=== PATIENT | female | born 1990 | race Caucasian/White ===

== ENCOUNTER 2019-12-24 01:38 | Emergency (ER) | payer SELFPAY ==
[2019-12-24 01:46] VITALS: PULSE 101; RESP 18; TEMP 36.8; O2SAT 96; BMI 21.9
--- NOTE | 2019-12-24 02:18 | ED_ITS ---
HPI - Female Genitourinary General: Chief complaint: Urogenital-Female Stated complaint: unable to urinate Time Seen by Provider: 12/24/19 02:04 Source: patient Mode of arrival: ambulatory Limitations: no limitations History of Present Illness: HPI Narrative: 29-year-old female comes in today with concerns of labial swelling. Patient states that she just had intercourse of her significant other and went to the bathroom and she noticed that she had increased swelling of the labial tissue. Patient denies use of condoms or lubricant gels. Patient did report that she had used some lotion after a shower that would note that was new. But did not use it to her vaginal area. Patient did have oysters for the first time today. Patient appears well. Patient denies any difficulty breathing. Patient denies any fever. Review of Systems General: Reports: 10 or more systems reviewed and unremarkable except in HPI and below : Reports: other (Labial swelling) Physical Exam Const: COMMON NORMALS: no acute distress and patient oriented x3 GENERAL APPEARANCE: cooperative HENMT: COMMON NORMALS: normocephalic and Normal external nose present HEAD & SCALP: normal to inspection and normocephalic NOSE: Normal external nose present MOUTH: Normal oral and palatal mucosa present THROAT: posterior oropharynx normal Eye: GENERAL EYE: appearance normal, both eyes and all related structures Neck/C-Spine: COMMON NORMALS: full ROM Chest: COMMONS NORMALS: normal inspection of the chest Resp: COMMON NORMALS: normal respiratory effort EFFORT & INSPECTION: Yes able to speak in complete sentences Cardio: COMMON NORMALS: regular rate and regular rhythm RATE: regular rate RHYTHM: regular rhythm GI: COMMON NORMALS: non-tender : EXTERNAL FEMALE EXAM: Yes external swelling (Labial swelling.) Back/Pelvis: COMMON NORMALS: thoracic and lumbar spine normal to inspection Extremity: COMMON NORMALS: normal to inspection Neuro: COMMON NORMALS: patient oriented x3 and moves all extremities Psych: COMMON NORMALS: mental status grossly normal and cooperative Skin: COMMON NORMALS: no rashes or lesions noted GENERAL SKIN EXAM: no rashes or lesions noted Course Vital Signs: Vital signs: Vital Signs Temperature 98.2 F 12/24/19 01:46 Pulse Rate 77 12/24/19 03:02 Respiratory Rate 22 H 12/24/19 03:02 Blood Pressure 99/54 07/18/20 03:02 Pulse Oximetry 98 12/24/19 03:02 MDM - Female MDM Narrative: Medical decision making narrative: Patient comes in today for concerns of labial swelling after intercourse. Patient denies any use of gels or condoms during intercourse. Exam notes labial swelling without any significant urethral swelling or vaginal irritation. Differential diagnosis includes allergic reaction, contact dermatitis, vaginitis. Patient was medicated with Solu-Medrol, Benadryl, and epinephrine 0.3 mg. Patient had some resolution in symptoms. Patient was medicated with hydrocodone for discomfort. We will continue patient on steroids for the swelling and discomfort. Recommended avoidance of sexual intercourse, and cosmetic products until return to normal. Patient reports understanding of care plan and need for follow-up. Lab Data: Labs: Lab Results 12/24/19 Range/Units 02:35 Urine Color Yellow (Yellow) Urine Appearance Hazy A (CLEAR) Urine pH 5 (5-7) Ur Specific Gravit y 1.025 (1.005-1.030) Urine Protein Neg (Negative) Urine Glucose (UA) Norm (Normal) Urine Ketones Negative (Negative) Urine Blood 2+ H (Negative) Urine Nitrate Negative (Negative) Urine Bilirubin Neg (NEGATIVE) Urine Urobilinogen Norm (Negative) mg/dL Ur Leukocyte Nevaeh ase Negative (Negative) Amorphous Sediment Not Reportable Discharge Plan Discharge Patient Disposition: Home, Self-Care Clinical Impression: Contact dermatitis Qualifiers: Contact dermatitis type: allergic Contact dermatitis trigger: unspecified trigger Qualified Code(s): L23.9 - Allergic contact dermatitis, unspecified cause Condition: Stable Prescriptions: New Medrol (Tobin) 4 mg tablets,dose pack See Rx Instructions .ROUTE .COMPLEX Qty: 21 RF: 0 hydrocodone-acetaminophen 5-325 mg tablet 1 tab PO Q8H PRN (Reason: pain) Qty: 5 RF: 0 Discharge Orders: Discharge Order (Routine); Ordered 12/24/19 Ordered By: Alberto Quintana Activity Restrictions/Additional Instructions: Drink plenty of water. Take medications as directed. Take the Benadryl 25 mg 1 every 6 hours for the next 3 days. Avoid sexual intercourse the use of soaps, cosmetic products and other irritants until you return to normal. Use only water-based lubricants for sexual intercourse. Follow-up with primary care in 3 days for recheck. Return to the ER for worsening symptoms or high fever greater than 100.4. Coding Level of Care Code ED Malted Milk Mixer for Chg 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
[2019-12-24 03:02] VITALS: BP 99/54; PULSE 77; RESP 22; O2SAT 98
[2019-12-24] MEDS: sodium chloride 0.9% 500 ML 999 ML IV (03:03)
[2019-12-24] MEDS: EPINEPHrine 1 mg/mL INJ 0.3 MG IM (03:04)
[2019-12-24] MEDS: diphenhydrAMINE 50 mg/mL SDV 1mL 25 MG IVP (03:04)
[2019-12-24 03:56] LABS: Add Urine Microscopic? YES; Bilirubin Urine Neg (NEGATIVE); Blood Urine 2+ (Negative); Glucose Urine UA Norm (Normal); Ketones Urine Negative (Negative); Leukocyte Esterase Urine Negative (Negative); Nitrate Urine Negative (Negative); Protein Urine Neg (Negative); Specific Gravity, Urine 1.025 (1.005-1.030); Urine Appearance Hazy (CLEAR); Urine Color Yellow (Yellow); Urobilinogen Urine Norm (Negative); pH Urine 5 (5-7)
[2019-12-24 04:00] VITALS: BP 97/55; PULSE 90; RESP 16; O2SAT 99
[2019-12-24 04:05] LABS: Add Urine Culture? No; Bacteria Urine 1+; Mucus Urine 3+
[2019-12-24] MEDS: HYDROcodone-acetaminophen 7.5-325 mg Tablet 1 TAB PO (04:06)
== END 2019-12-24 04:14 | disposition home or self-care (01) ==
PROVIDERS: Emergency Provider Nurse Practitioner Family
DX: L23.9 Allergic contact dermatitis, unspecified cause (principal)
CPT/HCPCS: 12345; 81001; 87210; 87491; 87591; 87661; 96372; 96374; 96375; 99283; J0171; J1200; J2930; J7040

== ENCOUNTER 2020-05-02 15:23 | Inpatient (IN) | payer SELFPAY ==
[2020-05-02 15:32] VITALS: BP 106/70; PULSE 84; RESP 20; TEMP 36.7; O2SAT 98; BMI 22.6
[2020-05-02 16:15] LABS: Basophils % 0.7 %; Eosinophils # 0.2 10^3/uL (0.0-0.8); Eosinophils % 4.1 %; Hematocrit 40.6 % (37.0-47.0); Hemoglobin 13.2 g/dL (11.5-15.3); Lymphocytes # 2.7 10^3/uL (0.8-4.8); Lymphocytes % 45.8 %; Mean Corpuscular HGB Conc 32.5 g/dL (30.0-36.0); Mean Corpuscular Hemoglobin 31.1 pg (28.0-34.0); Mean Corpuscular Volume 95.8 fL (81-99); Mean Platelet Volume 10.4 fL (7.4-10.4); Monocytes # 0.4 10^3/uL (0.2-0.9); Monocytes % 7.1 %; Neutrophils # 2.45 10^3/uL (1.8-7.7); Neutrophils % 42.3 %; Nucleated Red Blood Cells % 0 %; Platelet Count 179 10^3/cmm (130-400); Red Blood Count 4.24 10^6/uL (4.1-5.3); Red Cell Distribution Width 11.9 % (12.1-15.1); White Blood Count 5.8 10^3/uL (4.0-10.0)
[2020-05-02 16:24] LABS: Amphetamines Screen Urine Negative (Negative); Barbiturates Screen Urine Negative (Negative); Benzodiazepines Screen Urine Positive (Negative); Cocaine Screen Urine Negative (Negative); Opiate Screen Urine Negative (Negative); PCP Screen Urine Negative (Negative); THC Screen Urine Positive (Negative)
[2020-05-02 16:27] LABS: Add Urine Microscopic? YES; Bilirubin Urine Neg (Negative); Blood Urine Neg (Negative); Glucose Urine UA Norm (Normal); Ketones Urine Negative (Negative); Leukocyte Esterase Urine Negative (Negative); Nitrate Urine Negative (Negative); Protein Urine Neg (Negative); Urine Appearance SL Hazy (CLEAR); Urine Color Yellow (Yellow); Urobilinogen Urine Norm (Negative); WBC Urine RARE /hpf (0-5); pH Urine 5 (5-7)
[2020-05-02 16:28] LABS: Add Urine Culture? No; Bacteria Urine 1+ /hpf; Mucus Urine 1+ /hpf; Squamous Epithelial Cell Urine 15-25 /hpf (0-5)
[2020-05-02 16:35] LABS: Alanine Aminotransferase 31 U/L (0-33); Albumin Level 4.2 g/dL (3.5-5.2); Alkaline Phosphatase 103 IU/L (35-105); Anion Gap 11.4 (5-19); Aspartate Amino Transferase 19 U/L (0-32); Blood Urea Nitrogen 11 mg/dL (6-20); Calcium 9.4 mg/dL (8.5-10.5); Carbon Dioxide 28 mmol/L (22-29); Chloride 101 mmol/L (98-107); Globulin 2.5 g/dL (1.3-4.6); Glomerular Filtration Rate 118.2 mL/min (90-130); Glucose 99 mg/dL (65-115); Osmolality Calculated 281 mOsm/kg (285-295); Potassium 4.4 mmol/L (3.5-5.1); Sodium 136 mmol/L (136-145); Total Bilirubin 0.2 mg/dL (0.15-1.2); Total Protein 6.7 g/dL (6.6-8.7)
[2020-05-02 16:36] LABS: Acetaminophen < 5.0 ug/mL (10-30); Alcohol Level < 10 mg/dL (0-10); Salicylate < 0.3 mg/dL (3-10)
--- NOTE | 2020-05-02 16:44 | ED_ITS ---
HPI - Psych General: Chief Complaint: Psychiatric Symptoms Stated Complaint: SI Time Seen by Provider: 05/02/20 15:56 History of Present Illness: HPI Narrative: 30-year-old female comes in complaining of being anxious and depressed. She just lost her job she has been struggling with depression anxiety and issues of anger. She has a son is autistic and is struggling with managing this. States not been eating or drinking she has had suicidal thoughts and even times had some homicidal thoughts thoughts of smothering her boyfriend with a pillow in his sleep. She has had thoughts of harming herself either shooting herself or overdosing on pills she does have access to a firearm she tells me. MD complaint: suicidal ideation and feels depressed Onset (ago): week(s) Duration: intermittent and getting worse Relieving factors: medication (Took a friend's Klonopin stated that helped) Exacerbating factors: other (Social stressors) Context: significant life stressor (Recently lost job, son is autistic) Associated psychiatric symptoms: suicidal ideation and homicidal ideation Associated symptoms: Deny auditory hallucinations, visual hallucinations, delusions, depression, homicidal ideation, suicidal ideation or racing thoughts Treatments prior to arrival: none If self harm: admits thoughts of self harm and has plan Review of Systems Const: Denies: fever(s), chills, body aches, change in appetite, fatigue or malaise ENMT: Denies: throat pain, ear or mastoid pain, nasal discharge or nasal congestion Card: Denies: chest pain, edema, dyspnea on exertion or orthopnea Resp: Denies: dyspnea, productive cough or non-productive cough GI: Denies: abdominal pain, nausea, vomiting, hematemesis, coffee ground emesis, diarrhea, constipation, bloating, hematochezia or melena : Denies: flank pain, difficulty voiding, dysuria, urinary frequency or urinary urgency Skin/Breast: Denies: rash or pruritus Psych: Denies: depression, visual hallucinations, auditory hallucinations, suicidal ideation or homicidal ideation [facility] PFSH: Medical History (Updated 05/02/20 @ 18:01 by Hernan Montalvo DO) Endometriosis Surgical History (Updated 05/02/20 @ 16:47 by Hernan Montalvo DO) History of cholecystectomy History of hysterectomy History of tonsillectomy and adenoidectomy Physical Exam Const: COMMON NORMALS: no acute distress GENERAL APPEARANCE: cooperative and comfortable ORIENTATION/CONSCIOUSNESS: Yes awake, Yes oriented to person, Yes oriented to place and Yes oriented to time HENMT: COMMON NORMALS: normocephalic, atraumatic and hearing grossly normal bilaterally HEAD & SCALP: normocephalic and atraumatic Neck/C-Spine: COMMON NORMALS: no JVD Resp: COMMON NORMALS: normal respiratory effort, No retractions, No use of accessory muscles and clear to auscultation bilaterally AUSCULTATION: clear to auscultation bilaterally Cardio: COMMON NORMALS: no JVD, regular rate, regular rhythm and No murmurs present (Cardio) RATE: regular rate RHYTHM: regular rhythm GI: COMMON NORMALS: Soft to palpation and No hepatosplenomegaly present AUSCULTATION: Yes normoactive bowel sounds PALPATION: Yes Soft to palpation, No Tenderness to palpation present (GI), No Guarding due to palpation present (GI) and Yes No hepatosplenomegaly present Neuro: SENSORIUM/ORIENTATION: Yes oriented to person, Yes oriented to place and Yes oriented to time Psych: THOUGHT CONTENT: No delusions MDM - Psych MDM Narrative: Medical decision making narrative: Discussed Dr. Espinal patient is suicidal and homicidal has plans for both we will go and admit her to the Neuropsych Unit orders written Lab Data: Labs: Lab Results 05/02/20 05/02/20 05/02/20 Range/Units 16:02 16:02 16:02 WBC 5.8 (4.0-10.0) 10^3/ uL RBC 4.24 (4.1-5.3) 10^6/u L Hgb 13.2 (11.5-15.3) g/dL Hct 40.6 (37.0-47.0) % MCV 95.8 (81-99) fL MCH 31.1 (28.0-34.0) pg MCHC 32.5 (30.0-36.0) g/dL RDW 11.9 L (12.1-15.1) % Plt Count 179 (130-400) 10^3/c mm MPV 10.4 (7.4-10.4) fL Neut % (Auto) 42.3 % Lymph % (Auto) 45.8 % Williams % (Auto) 7.1 % Eos % (Auto) 4.1 % Baso % (Auto) 0.7 % Neut # (Auto) 2.45 (1.8-7.7) 10^3/u L Lymph # (Auto) 2.7 (0.8-4.8) 10^3/u L Williams # (Auto) 0.4 (0.2-0.9) 10^3/u L Eos # (Auto) 0.2 (0.0-0.8) 10^3/u L Baso # (Auto) 0.0 (0.0-0.1) 10^3/u L Nucleated RBC % (a uto) 0 % Nucleated RBCs # 0.0 /100WBC Sodium 136 (136-145) mmol/L Potassium 4.4 (3.5-5.1) mmol/L Chloride 101 (98-107) mmol/L Carbon Dioxide 28 (22-29) mmol/L Anion Gap 11.4 (5-19) BUN 11 (6-20) mg/dL Creatinine 0.6 (0.5-0.9) mg/dL GFR Calculation 118.2 (90-130) mL/min Glucose 99 (65-115) mg/dL Calculated Osmolal ity 281 L (285-295) mOsm/k g Calcium 9.4 (8.5-10.5) mg/dL Total Bilirubin 0.2 (0.15-1.2) mg/dL AST 19 (0-32) U/L ALT 31 (0-33) U/L Alkaline Phosphata se 103 (35-105) IU/L Total Protein 6.7 (6.6-8.7) g/dL Albumin 4.2 (3.5-5.2) g/dL Globulin 2.5 (1.3-4.6) g/dL Urine Color Yellow (Yellow) Urine Appearance Sl hazy (CLEAR) Urine pH 5 (5-7) Ur Specific Gravit y 1.020 (1.005-1.030) Urine Protein Neg (Negative) Urine Glucose (UA) Norm (Normal) Urine Ketones Negative (Negative) Urine Blood Neg (Negative) Urine Nitrate Negative (Negative) Urine Bilirubin Neg (Negative) Urine Urobilinogen Norm (Negative) mg/dL Ur Leukocyte Nevaeh ase Negative (Negative) Urine RBC None (0-2) /hpf Urine WBC Rare (0-5) /hpf Ur Squamous Epith Cells 15-25 H (0-5) /hpf Amorphous Sediment Not Reportable Urine Bacteria 1+ H (NONE) /hpf Urine Mucus 1+ /hpf Salicylates < 0.3 L (3-10) mg/dL Urine Opiates Scre en (Negative) ng/mL Acetaminophen < 5.0 L (10-30) ug/mL Ur Barbiturates Sc reen (Negative) ng/mL Ur Phencyclidine S crn (Negative) ng/mL Ur Amphetamines Sc reen (Negative) ng/mL U Benzodiazepines Scrn (Negative) ng/mL Urine Cocaine Scre en (Negative) ng/mL U Marijuana (THC) Screen (Negative) ng/mL Ethyl Alcohol < 10 (0-10) mg/dL 11/25/20 Range/Units 16:02 WBC (4.0-10.0) 10^3/ uL RBC (4.1-5.3) 10^6/u L Hgb (11.5-15.3) g/dL Hct (37.0-47.0) % MCV (81-99) fL MCH (28.0-34.0) pg MCHC (30.0-36.0) g/dL RDW (12.1-15.1) % Plt Count (130-400) 10^3/c mm MPV (7.4-10.4) fL Neut % (Auto) % Lymph % (Auto) % Williams % (Auto) % Eos % (Auto) % Baso % (Auto) % Neut # (Auto) (1.8-7.7) 10^3/u L Lymph # (Auto) (0.8-4.8) 10^3/u L Williams # (Auto) (0.2-0.9) 10^3/u L Eos # (Auto) (0.0-0.8) 10^3/u L Baso # (Auto) (0.0-0.1) 10^3/u L Nucleated RBC % (a uto) % Nucleated RBCs # /100WBC Sodium (136-145) mmol/L Potassium (3.5-5.1) mmol/L Chloride (98-107) mmol/L Carbon Dioxide (22-29) mmol/L Anion Gap (5-19) BUN (6-20) mg/dL Creatinine (0.5-0.9) mg/dL GFR Calculation (90-130) mL/min Glucose (65-115) mg/dL Calculated Osmolal ity (285-295) mOsm/k g Calcium (8.5-10.5) mg/dL Total Bilirubin (0.15-1.2) mg/dL AST (0-32) U/L ALT (0-33) U/L Alkaline Phosphata se (35-105) IU/L Total Protein (6.6-8.7) g/dL Albumin (3.5-5.2) g/dL Globulin (1.3-4.6) g/dL Urine Color (Yellow) Urine Appearance (CLEAR) Urine pH (5-7) Ur Specific Gravit y (1.005-1.030) Urine Protein (Negative) Urine Glucose (UA) (Normal) Urine Ketones (Negative) Urine Blood (Negative) Urine Nitrate (Negative) Urine Bilirubin (Negative) Urine Urobilinogen (Negative) mg/dL Ur Leukocyte Nevaeh ase (Negative) Urine RBC (0-2) /hpf Urine WBC (0-5) /hpf Ur Squamous Epith Cells (0-5) /hpf Amorphous Sediment Urine Bacteria (NONE) /hpf Urine Mucus /hpf Salicylates (3-10) mg/dL Urine Opiates Scre en Negative (Negative) ng/mL Acetaminophen (10-30) ug/mL Ur Barbiturates Sc reen Negative (Negative) ng/mL Ur Phencyclidine S crn Negative (Negative) ng/mL Ur Amphetamines Sc reen Negative (Negative) ng/mL U Benzodiazepines Scrn Positive H (Negative) ng/mL Urine Cocaine Scre en Negative (Negative) ng/mL U Marijuana (THC) Screen Positive H (Negative) ng/mL Ethyl Alcohol (0-10) mg/dL Discharge Plan Discharge Patient Disposition: Admitted As Inpatient Clinical Impression: Suicidal ideation Condition: Stable Coding Level of Care Code ED Defense Attorney for Robert Fwd Exam Detailed
[2020-05-02] MEDS: LORazepam 2 mg Tablet PO (17:23)
--- NOTE | 2020-05-02 18:47 | PC.NURSE ---
report given to saskia farncisco
[2020-05-02 18:57] VITALS: BP 96/58; PULSE 82; RESP 19; TEMP 36.4; O2SAT 100
[2020-05-02 19:00] VITALS: BP 96/58; PULSE 82; RESP 19; TEMP 36.4; O2SAT 100
[2020-05-02 20:23] VITALS: BP 96/58; PULSE 82; RESP 19; TEMP 36.4
[2020-05-02 20:34] VITALS: BP 96/58; PULSE 82; RESP 19; TEMP 36.4
--- NOTE | 2020-05-02 21:18 | PC.NURSE ---
past medication Pt stated that she took Valium and Prozac in the past. She stated that this is the only medications that have helped her anxiety level.
--- NOTE | 2020-05-02 21:20 | PC.NURSE ---
30-year-old female comes in complaining of being anxious and depressed. She just lost her job she has been struggling with depression anxiety and issues of anger. She has a son is autistic and is struggling with managing this. States not been eating or drinking she has had suicidal thoughts and even times had some homicidal thoughts thoughts of smothering her boyfriend with a pillow in his sleep. She has had thoughts of harming herself either shooting herself or overdosing on pills she does have access to a firearm she tells me.
[2020-05-02] MEDS: hyDROXYzine 25 mg Capsule 50 MG PO (21:23)
--- NOTE | 2020-05-02 21:24 | PC.NURSE ---
Addendum entered by Keira Bennett RN 05/02/20 22:01: Pt reports increased anxiety upon waking. She says she is panicking. She then returned to bed. Original Note: Visteril 50mg PO given for anxiety rated 8 on a scale of 1-10 Will continue to monitor pt.
[2020-05-02] MEDS: trazodone 50 mg Tablet PO (22:33)
--- NOTE | 2020-05-02 22:33 | PC.NURSE ---
PRN TRAZODOEN ADMINISTERED TRAZODONE 50MG PO PER PT REQUEST FOR SLEEP AID.
[2020-05-03 06:00] VITALS: BP 96/59; PULSE 59; RESP 16; TEMP 36.8; O2SAT 98
--- NOTE | 2020-05-03 08:56 | P.HP_ITS ---
Providers/Chief Complaint Admitting Physician: Sebastien Desai MD Chief Complaint: SI HPI NPU History of Present Illness Leah Chua is a 30-year-old woman who has self admitted herself to the psychiatric unit to prevent impulsive self-injurious behavior. She has been laboring under considerable psychoemotional stress and has been having suicidal thoughts but without intent or plan. Her performance at work has declined to such a degree that she may lose her employment. She describes herself as having anxiety all the time. However what she describes is someone with severe clinical depression. She has anhedonia, feelings of hopelessness and worthlessness, irritability, severe insomnia, poor concentration, and suicidal ideation. She has never had an intent or plan. She denies the presence of auditory or visual hallucinations. Her urine drug screen is positive for marijuana and benzodiazepines. However she is free of alcohol and other illegal substances. She desires help with her symptoms so that she can return to her employment and taking care of her 8-year-old son. Past psychiatric history: The patient describes herself as having multiple medication trials since for starting a Vistaril at age 17. She says the Vistaril has persistently given her for anxiety but it does not help very much. She has been helped the most by combination of Prozac and Valium. She stopped taking it 4 years ago because she wanted to try and maintain her life without medications. She is also taking trazodone and Abilify and multiple depression pills. Abilify was not tolerated. She says that gabapentin caused seizures but that was while she was in rehab for methamphetamine. She has been in rehab 1 time 5 years ago to resolve a problem with methamphetamine dependence. 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 She was not confronted about her marijuana use. Family psychiatric history is positive for multiple diagnoses in a variety of numbers. She has a uncle and several cousins diagnosed with schizophrenia. Many of her family have been diagnosed either with anxiety or bipolar disorder. It is also apparent that substance use is a general problem in the family. Social history: The patient grew up in [place] and is a high school graduate. She currently works for 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 She works 14 hours/day. She has an 18-year-old son and is diagnosed with autism who is cared for by her boyfriend's mother. Her performance at work has declined to such a degree that she may lose her employment. Review of Systems Narrative: Review of Systems Constitutional: Complains of: Fatigue Eyes: Complains of: No eye symptoms ENT/Mouth: Complains of: No ENTM symptoms Cardiovascular: Complains of: No cardiac symptoms Respiratory: Complains of: No respiratory symptoms GI: Complains of: No GI symptoms Neuro: Complains of: No neuro symptoms Musculoskeletal: Complains of: No musculoskeletal symptoms Skin: Complains of: No skin symptoms Hematologic/Lymphatic: Complains of: No hematologic/lymphatic symptoms Endocrine: Complains of: No endocrine symptoms : Complains of: No symptoms Psych: Complains of: Depression, but denies suicide ideation Meds NPU Home Medications Medication Instructions Recorded Confirmed Last Taken Type No Known Home Medications 05/02/20 05/02/20 Unknown History Allergies Allergy/AdvReac Type Severity Reaction Status Date / Time buspirone [From BuSpar] Allergy ADR-Cramping Verified 05/02/20 21:08 of the Muscles gabapentin [From Neurontin] Allergy ADR-Seizure Verified 05/02/20 21:08 metoclopramide [From Reglan] AdvReac ADR-Irritab Verified 12/24/19 04:06 le prochlorperazine AdvReac ADR-Irritab Verified 12/24/19 04:06 [From Compazine] le [facility] NPU PFSH: Medical History (Updated 05/03/20 @ 09:15 by Sebastien Desai MD) Endometriosis Surgical History (Updated 05/02/20 @ 16:47 by Hernan Montalvo DO) History of cholecystectomy History of hysterectomy History of tonsillectomy and adenoidectomy Mental Status Exam MSE Comments: Mental Status Exam: Patient is alert interpersonally engaged female appearing approximately her stated age. Eye contact initially is good but as she becomes more despondent and distressed about discussing her situation she assumes a more closed and submissive posture. She is believed to be a reliable informant and information provided is internally consistent and consistent with that in the chart. Appearance: hygiene is fair; no gross neurological deficits., gait is unremarkable; AIMS=0 Speech: Speech is of normal rate and rhythm and easily understood. She speaks in full sentences and has good command of vocabulary Thought processes: Thought processes are abstract. Judgment is adequate for safety. Associations: intact Psychotic processes: There is no indication of guarding or paranoia. There is no attention to the internal stimuli. Auditory and visual hallucinations are denied. Judgment: Insight is fair. Problem solving skills are adequate for safety. Orientation: The patient is oriented to person, place time and situation. Memory: no deficits noted in immediate, intermediate, or remote spheres. Attention: The patient is alert and interpersonally engaged. Language: Verbalizations are coherent. Fund of knowledge: Fund of knowledge is adequate. Affect/Mood: Affect is tearful and consistent with a depressed mood. pt denies suicidal ideation Affective range is constricted Psychosis: perception unimpaired except through cognitive distortion; reality testing intact. Vitals/I&O/Wt Last Vital Signs Temp 98.2 F 05/03/20 06:00 Pulse 59 L 05/03/20 06:00 Resp 16 05/03/20 06:00 BP 96/59 05/03/20 06:00 Pulse Ox 98 05/03/20 06:00 Weight last 48 hrs Weight 54.431 kg Data NPU : 05/02/20 16:02 05/02/20 16:02 A&P Assessment and plan (1) Major depression, single episode: Status: Acute Qualifiers: Active/Remission status: currently active Major depression episode severity: severe Psychotic features: without psychotic features Qualified Code(s): F32.2 - Major depressive disorder, single episode, severe without psychotic features Additional A&P Information Leah Chua is a 30-year-old woman who is laboring under an immense psychosocial pressure. She is suffering from clinical depression. She has resp onded well in the past with Prozac and Valium. We have decided to return to that when in combination. She was thoroughly educated in regard to the time course of response to medication treatment for depression and the potential for abuse of Valium. Are also going to initiate prazosin 1 mg at bedtime. Potential benefits and side effects were discussed. However we also discussed the possibility that she is simply overwhelmed by self-imposed demands. It is unclear whether she can continue this schedule even with effective treatment. Due to the psychiatric conditions and treatment listed in the Assessment and Plan - the patient requires continued hospitalization. Will provide a safe and therapeutic environment for patient.. Will continue inpatient treatment to allow for medication adjustment and monitoring. Will continue q15 min safety checks. Will continue current medications and monitor for medication side effects. Monitor patient's mood, sleep, appetite, and behavior closely. Encourage patient to participate in individual and group therapeutic sessions on the haskins. Estimated length of stay 3 days The expected benefits and potential side effects of patient's psychiatric medications were discussed with the patient. The patient understands and consents to treatment. CRITERIA FOR DISCHARGE: stable on medications and no longer an imminent threat to self or others Involuntary Hold Information 96 Hour Hold: 96 Hour Involuntary Admission: No Attestations NPU Medical Necessity Statement*: Patient will remain in the hospital another 2-4 nights for assessment of medication efficacy and tolerability. Coding Level of Care Code Acute Burner Operator for Robert Valerio Diagnoses Major depression, single episode F32.2 Active/Remission status: currently active Major depression episode severity: severe Psychotic features: without psychotic features
[2020-05-03] MEDS: fluoxetine 20 mg Capsule PO (09:12)
[2020-05-03] MEDS: diazePAM 5 mg Tablet PO ×2 (09:12→20:25)
[2020-05-03] MEDS: hyDROXYzine 25 mg Capsule 50 MG PO (12:35)
--- NOTE | 2020-05-03 12:35 | PC.NURSE ---
PRN VISTARIL 50 MG GIVEN PO PER PT C/O ANXIETY. WILL CONT TO MONITOR
[2020-05-03 14:00] VITALS: BP 92/53; PULSE 60; RESP 16; TEMP 36.9; O2SAT 96
[2020-05-03] MEDS: trazodone 50 mg Tablet PO (20:24)
[2020-05-03] MEDS: prazosin 1 mg Capsule PO (20:24)
[2020-05-03 22:00] VITALS: BP 93/63; PULSE 53; RESP 17; TEMP 36.4; O2SAT 99
[2020-05-04 06:00] VITALS: BP 90/53; PULSE 67; RESP 15; TEMP 36.6; O2SAT 97
[2020-05-04] MEDS: fluoxetine 20 mg Capsule PO (08:47)
--- NOTE | 2020-05-04 08:51 | P.PN_ITS ---
Subjective NPU Subjective: Interval history: Patient states that she slept much better last night and her level of anxiety is much reduced. She talks about intrusive ego-dystonic thoughts regarding things that her mother has said in the past and that are demeaning to her. She cannot stop thinking about them. She does not describe them as auditory hallucinations. She is tolerating current medications well. Mental Status Exam MSE Comments: Mental Status Exam: Patient is alert interpersonally engaged female appearing approximately her stated age. Eye contact is good . She is believed to be a reliable informant and information provided is internally consistent and consistent with that in the chart. Appearance: hygiene is fair; no gross neurological deficits., gait is unremarkable; AIMS=0 Speech: Speech is of normal rate and rhythm and easily understood. She speaks in full sentences and has good command of vocabulary Thought processes: Thought processes are abstract. Judgment is adequate for safety. Associations: intact Psychotic processes: There is no indication of guarding or paranoia. There is no attention to the internal stimuli. Auditory and visual hallucinations are denied. Judgment: Insight is fair. Problem solving skills are adequate for safety. Orientation: The patient is oriented to person, place time and situation. Memory: no deficits noted in immediate, intermediate, or remote spheres. Attention: The patient is alert and interpersonally engaged. Language: Verbalizations are coherent. Fund of knowledge: Fund of knowledge is adequate. Affect/Mood: Affect is tearful and consistent with a depressed mood. pt denies suicidal ideation Affective range is constricted Psychosis: perception unimpaired except through cognitive distortion; reality testing intact. Cognition: Patient Appearance: Appropriate Level of Consciousness: Awake, Alert and Appropriate Patient Cognition Impaired: Yes Ability to Follow Directions: Excellent Patient Orientation (long list): Person, Place and Time Comprehension Ability: No Impairment Hallucination Type: Auditory Delusion Description: Not Present Thought Process: Appropriate Affect: Affect Description: Appropriate and Calm Behavior: Patient Behavior: Appropriate and Cooperative Speech Pattern: Clear Vitals/I&O/Wt Last Vital Signs Temp 97.8 F 05/04/20 06:00 Pulse 67 05/04/20 06:00 Resp 15 05/04/20 06:00 BP 90/53 05/04/20 06:00 Pulse Ox 97 05/04/20 06:00 Weight last 48 hrs Weight 54.431 kg Data NPU : 05/02/20 16:02 05/02/20 16:02 A&P Assessment and plan (1) Major depression, single episode: Status: Acute Qualifiers: Active/Remission status: currently active Major depression episode severity: severe Psychotic features: without psychotic features Qualified Code(s): F32.2 - Major depressive disorder, single episode, severe without psychotic features Additional A&P Information Leah Chua is a 30-year-old woman who is laboring under an immense psychosocial pressure. She is suffering from clinical depression. She has responded well in the past with Prozac and Valium. We have decided to return to that when in combination. She was thoroughly educated in regard to the time course of response to medication treatment for depression and the potential for abuse of Valium. Are also going to initiate prazosin 1 mg at bedtime. Potential benefits and side effects were discussed. However we also discussed the possibility that she is simply overwhelmed by self-imposed demands. It is unclear whether she can continue this schedule even with effective treatment. Due to the psychiatric conditions and treatment listed in the Assessment and Plan - the patient requires continued hospitalization. Will provide a safe and therapeutic environment for patient.. Will continue inpatient treatment to allow for medication adjustment and monitoring. Will continue q15 min safety checks. Hospital day #2:Patient states that she slept much better last night and her level of anxiety is much reduced. She talks about intrusive ego-dystonic thoughts regarding things that her mother has said in the past and that are d emeaning to her. She cannot stop thinking about them. She does not describe them as auditory hallucinations. She is tolerating current medications well. Plan: Trial of Abilify 2 mg daily. Monitor patient's mood, sleep, appetite, and behavior closely. Encourage patient to participate in individual and group therapeutic sessions on the [facility]. Estimated length of stay 3 days The expected benefits and potential side effects of patient's psychiatric medications were discussed with the patient. The patient understands and consents to treatment. CRITERIA FOR DISCHARGE: stable on medications and no longer an imminent threat to self or others Involuntary Hold Information 96 Hour Hold: 96 Hour Involuntary Admission: No Attestations NPU Medical Necessity Statement*: Patient will remain in the hospital another 2-4 nights for assessment of medication efficacy and tolerability. 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
[2020-05-04] MEDS: ARIPiprazole 2 mg Tablet PO (09:35)
[2020-05-04] MEDS: diazePAM 5 mg Tablet PO ×2 (09:35→16:59)
[2020-05-04 13:19] VITALS: BP 107/74; PULSE 99; RESP 18; TEMP 37.2; O2SAT 99
[2020-05-04] MEDS: trazodone 50 mg Tablet PO (20:51)
[2020-05-04] MEDS: prazosin 1 mg Capsule PO (20:51)
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
[2020-05-04 22:00] VITALS: BP 92/66; PULSE 75; RESP 16; TEMP 36.8; O2SAT 98
[2020-05-05 06:00] VITALS: BP 95/64; PULSE 79; RESP 18; TEMP 37; O2SAT 98
[2020-05-05] MEDS: ARIPiprazole 2 mg Tablet PO (07:38)
[2020-05-05] MEDS: acetaminophen 325 mg Tablet 650 MG PO (07:39)
[2020-05-05] MEDS: fluoxetine 20 mg Capsule PO (07:39)
[2020-05-05] MEDS: diazePAM 5 mg Tablet PO (07:39)
[2020-05-05 09:20] VITALS: BP 95/64; PULSE 79; RESP 18; TEMP 37; O2SAT 98
[2020-05-05 09:30] VITALS: BP 95/64; PULSE 79; RESP 18; TEMP 37; O2SAT 98
--- NOTE | 2020-05-05 09:31 | PM.NDC ---
Diagnoses at Discharge Discharge Diagnosis (1) Major depression, single episode: Status: Acute Qualifiers: Active/Remission status: currently active Major depression episode severity: severe Psychotic features: without psychotic features Qualified Code(s): F32.2 - Major depressive disorder, single episode, severe without psychotic features Reason for Visit Reason for Visit: SI Brief History: alan Chua is a 30-year-old woman who has self admitted herself to the psychiatric unit to prevent impulsive self-injurious behavior. She has been laboring under considerable psychoemotional stress and has been having suicidal thoughts but without intent or plan. Her performance at work has declined to such a degree that she may lose her employment. She describes herself as having anxiety all the time. However what she describes is someone with severe clinical depression. She has anhedonia, feelings of hopelessness and worthlessness, irritability, severe insomnia, poor concentration, and suicidal ideation. She has never had an intent or plan. She denies the presence of auditory or visual hallucinations. Her urine drug screen is positive for marijuana and benzodiazepines. However she is free of alcohol and other illegal substances. She desires help with her symptoms so that she can return to her employment and taking care of her 8-year-old son. Past psychiatric history: The patient describes herself as having multiple medication trials since for starting a Vistaril at age 17. She says the Vistaril has persistently given her for anxiety but it does not help very much. She has been helped the most by combination of Prozac and Valium. She stopped taking it 4 years ago because she wanted to try and maintain her life without medications. She is also taking trazodone and Abilify and multiple depression pills. Abilify was not tolerated. She says that gabapentin caused seizures but that was while she was in rehab for methamphetamine. She has been in rehab 1 time 5 years ago to resolve a problem with methamphetamine dependence. 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 She was not confronted about her marijuana use. Hospital Course Hospital Course (1) Major depression, single episode: Status: Acute Leah Chua is a 30-year-old woman who is laboring under an immense psychosocial pressure. She is suffering from clinical depression. She has responded well in the past with Prozac and Valium. We have decided to return to that when in combination. She was thoroughly educated in regard to the time course of response to medication treatment for depression and the potential for abuse of Valium. Are also going to initiate prazosin 1 mg at bedtime. Potential benefits and side effects were discussed. However we also discussed the possibility that she is simply overwhelmed by self-imposed demands. It is unclear whether she can continue this schedule even with effective treatment. Hospital Day #3: Interval history: Patient states that she slept much better last night and her level of anxiety is much reduced. She talks about intrusive ego-dystonic thoughts regarding things that her mother has said in the past and that are demeaning to her. She cannot stop thinking about them. She does not describe them as auditory hallucinations. She is tolerating current medications well. It is noted that the patient continually discusses any type of emotional distress as anxiety . It is also noted that she is invested in the belief that anxiety, insomnia, sadness, irritability, or any other emotional difficulty must be treated with a medication. We discussed the intent of diazepam being a short-term medication but she believes this is a medication that she will be required to take over a long period of time. Plan: Trial of Abilify 2 mg daily. Involuntary Hold Information 96 Hour Hold: 96 Hour Involuntary Admission: No Mental Status Exam MSE Comments: Mental Status Exam: Patient is alert interpersonally engaged female appearing approximately her stated age. Eye contact is good . She is believed to be a reliable informant and information provided is internally consistent and consistent with that in the chart. Appearance: hygiene is fair; no gross neurological deficits., gait is unremarkable; AIMS=0 Speech: Speech is of normal rate and rhythm and easily understood. She speaks in full sentences and has good command of vocabulary Thought processes: Thought processes are abstract. Judgment is adequate for safety. Associations: intact Psychotic processes: There is no indication of guarding or paranoia. There is no attention to the internal stimuli. Auditory and visual hallucinations are denied. Judgment: Insight is fair. Problem solving skills are adequate for safety. Orientation: The patient is oriented to person, place time and situation. Memory: no deficits noted in immediate, intermediate, or remote spheres. Attention: The patient is alert and interpersonally engaged. Language: Verbalizations are coherent. Fund of knowledge: Fund of knowledge is adequate. Affect/Mood: Affect is consistent with a euthymic mood. pt denies suicidal ideation Affective range is within normal limits Psychosis: perception unimpaired except through cognitive distortion; reality testing intact. Cognition: Patient Appearance: Appropriate Level of Consciousness: Awake, Alert and Appropriate Patient Cognition Impaired: Yes Ability to Follow Directions: Excellent Patient Orientation (long list): Person, Place and Time Comprehension Ability: No Impairment Hallucination Type: None Delusion Description: Not Present Thought Process: Appropriate Affect: Affect Description: Appropriate Behavior: Patient Behavior: Appropriate Speech Pattern: Appropriate Discharge Data Vitals: Last Vital Signs Temp 98.6 F 05/05/20 09:30 Pulse 79 05/05/20 09:30 Resp 18 05/05/20 09:30 BP 95/64 05/05/20 09:30 Pulse Ox 98 05/05/20 09:30 Discharge Plan Discharge Patient Disposition: Home Condition: Stable Prescriptions: New trazodone 50 mg Tablet 50 mg PO BEDTIME PRN (Reason: Insomnia) Qty: 10 RF: 2 prazosin 1 mg Capsule 1 mg PO BEDTIME Qty: 30 RF: 2 fluoxetine 20 mg Capsule 20 mg PO DAILY Qty: 30 RF: 2 diazepam 5 mg Tablet 5 mg PO BID Qty: 60 RF: 2 aripiprazole 2 mg Tablet 2 mg PO DAILY Qty: 30 RF: 2 Discharge Orders: Discharge Order (Routine); Ordered 05/05/20 Ordered By: Sebastien Desai Referrals: [facility] [place] [facility] [Outside] - 1-3 days (call and request initial intake for outpatient mental health services. 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
== END 2020-05-05 10:14 | disposition home or self-care (01) | DRG 885 ==
LOC: ER 18:01 → NP 18:31
PROVIDERS: Admitting Provider Psychiatry & Neurology Psychiatry; Emergency Provider Family Medicine; Visit Provider Psychiatry & Neurology Psychiatry
DX: F32.2 Major depressive disorder, single episode, severe without psychotic features (principal); R45.851 Suicidal ideations; F12.10 Cannabis abuse, uncomplicated
CPT/HCPCS: 12345; 80053; 80306; 80307; 81001; 85025; 99284

== ENCOUNTER 2020-05-09 17:00 | Emergency (ER) | payer MEDICAID, SELFPAY ==
[2020-05-09] VITALS (8 sets, daily range): BP systolic 90–112; BP diastolic 58–78; PULSE 64–86; RESP 16–18; TEMP 36.7–36.9; O2SAT 96–98; BMI 23.6
--- NOTE | 2020-05-09 17:17 | W.ED.ABDPA2 ---
HPI - Abdominal Pain General: Chief Complaint: Abdominal Pain Stated Complaint: ABD PAIN Time Seen by Provider: 05/09/20 17:08 Source: patient Mode of arrival: EMS Limitations: no limitations History of Present Illness: HPI narrative: 30-year-old female patient was recently discharged from the [employer] for depression under started on multiple new medications including Abilify and Prozac. The patient states that anytime she takes Abilify and Prozac she gets abdominal pain and has been slowly worsening for the last 5 days. The pain is now unbearable and she is here to be evaluated. MD elicited complaint: abdominal pain Onset (ago): day(s) (5) Pain Consistency: intermittent Location: Epigastric Severity: severe Quality: cramping Radiation: none Migration to: no migration Exacerbating factors: eating and medication Relieving factors: nothing Associated Symptoms: Reports GI cramping, nausea and vomiting; Denies anorexia, belching, bloating, change in bowel habits, change in stool character, chills, coffee ground emesis, constipation, diarrhea, dyspepsia, dysuria, excessive flatus, fever(s), heartburn, hematochezia, hematuria, hematemesis, fecal incontinence, loose stools, melena, poor appetite and syncope Treatments prior to arrival: prescription analgesics Related Data: Date of Last Menstrual Period: 10/07/11 Review of Systems General: Reports: 10 or more systems reviewed and unremarkable except in HPI and below Const: Denies: fever(s) or chills Eyes: Denies: change in vision or blurry vision ENMT: Denies: throat pain, enlarged tonsils, odynophagia, hoarseness, mouth pain or swelling of lips/tongue Card: Denies: syncope Resp: Denies: dyspnea, productive cough or non-productive cough GI: Reports: nausea, vomiting and GI cramping; Denies: hematemesis, coffee ground emesis, heartburn, diarrhea, constipation, bloating, belching, excessive flatus, fecal incontinence, change in bowel habits, change in stool character, hematochezia or melena : Denies: dysuria or hematuria Musc: Denies: neck pain, back pain or extremity swelling Skin/Breast: Denies: rash, pruritus or erythema Neuro: Denies: headache(s), numbness in extremities or weakness in extremities Endo: Denies: polyuria, polydipsia or tired all the time PFSH ED PFSH: Medical History Endometriosis Surgical History History of cholecystectomy History of hysterectomy History of tonsillectomy and adenoidectomy Female Reproductive History: Date of last menstrual period: 10/07/11 Physical Exam Const: COMMON NORMALS: no acute distress, average body habitus, patient oriented x3, no limitations, healthy appearing, alert and well nourished HENMT: COMMON NORMALS: normocephalic, atraumatic and moist oral mucous membranes HEAD & SCALP: normocephalic and atraumatic Neck/C-Spine: COMMON NORMALS: no meningeal signs and no JVD Resp: COMMON NORMALS: normal respiratory effort, No retractions, No use of accessory muscles, clear to auscultation bilaterally and percussion normal AUSCULTATION: clear to auscultation bilaterally PERCUSSION: percussion normal Cardio: COMMON NORMALS: no JVD, regular rate, regular rhythm, S1 normal heart sound present, S2 normal heart sound present, No gallops present (Cardio), No clicks present (Cardio), No murmurs present (Cardio), No rub (Cardio) and Peripheral pulses 2+ throughout RATE: regular rate RHYTHM: regular rhythm HEART SOUNDS: S1 normal heart sound present and S2 normal heart sound present PERIPHERAL PULSES: Peripheral pulses 2+ throughout GI: COMMON NORMALS: Normal to inspection, nondistended, normoactive bowel sounds present, Soft to palpation, No hepatosplenomegaly present, no masses and no bruits PALPATION: Yes Soft to palpation, Yes Tenderness to palpation present (GI) (Epigastric) and Yes No hepatosplenomegaly present Extremity: COMMON NORMALS: normal to inspection, full ROM, capillary refill normal, no calf tenderness and no pedal edema Neuro: COMMON NORMALS: patient oriented x3 SENSORIUM/ORIENTATION: Yes alert MENINGEAL SIGNS: Yes no meningeal signs Skin: COMMON NORMALS: no rashes or lesions noted, no wounds, turgor normal, no jaundice, no petechiae and no mottling GENERAL SKIN EXAM: no rashes or lesions noted and turgor normal Course Reevaluation(s): Reevaluation #1: Discussed her lab and imaging findings with her. She has a mild case of acute pancreatitis. Lab numbers are not high enough to warrant hospital admission. Pain is controlled now. We will discharge her home with a prescription for pain medication and antiemetics. She will continue clear liquid diet for now and gradually advance her diet. She voiced understanding and is in agreement with the plan. Time: 21:33 Vital Signs: Vital signs: Vital Signs Temperature 98.0 F 05/09/20 21:47 Pulse Rate 68 05/09/20 21:47 Respiratory Rate 16 05/09/20 21:47 Blood Pressure 100/58 05/09/20 21:47 Pulse Oximetry 96 05/09/20 21:47 MDM - Abdominal Pain MDM Narrative: Medical decision making narrative: Patient with clinical findings consistent with mild case of acute pancreatitis. She had no vomiting in the emergency department and was able to tolerate oral fluids without vomiting. Pain was well controlled and she is discharged home on oral pain medications. She will follow-up with her primary care provider. Differential Diagnosis: Differential diagnosis abdominal pain: Likely abdominal pain, acute appendicitis, constipation, diverticulitis and pancreatitis Medical Records: Attestation: I reviewed the patient's medical records. Lab Data: Attestation: I reviewed the patient's lab results. Labs: Lab Results 05/09/20 05/09/20 05/09/20 Range/Units 17:26 17:26 17:37 WBC 8.2 (4.0-10.0) 10^3/ uL RBC 4.30 (4.1-5.3) 10^6/u L Hgb 13.5 (11.5-15.3) g/dL Hct 39.2 (37.0-47.0) % MCV 91.2 (81-99) fL MCH 31.4 (28.0-34.0) pg MCHC 34.4 (30.0-36.0) g/dL RDW 12.0 L (12.1-15.1) % Plt Count 191 (130-400) 10^3/c mm MPV 10.2 (7.4-10.4) fL Neut % (Auto) 69.0 % Lymph % (Auto) 22.3 % [place] % (Auto) 7.2 % Eos % (Auto) 0.8 % Baso % (Auto) 0.5 % Neut # (Auto) 5.68 (1.8-7.7) 10^3/u L Lymph # (Auto) 1.8 (0.8-4.8) 10^3/u L [place] # (Auto) 0.6 (0.2-0.9) 10^3/u L Eos # (Auto) 0.1 (0.0-0.8) 10^3/u L Baso # (Auto) 0.0 (0.0-0.1) 10^3/u L Nucleated RBC % (a uto) 0 % Nucleated RBCs # 0.0 /100WBC Sodium (136-145) mmol/L Potassium (3.5-5.1) mmol/L Chloride (98-107) mmol/L Carbon Dioxide (22-29) mmol/L Anion Gap (5-19) BUN (6-20) mg/dL Creatinine (0.5-0.9) mg/dL GFR Calculation (90-130) mL/min Glucose (65-115) mg/dL Calculated Osmolal ity (285-295) mOsm/k g Calcium (8.5-10.5) mg/dL Total Bilirubin (0.15-1.2) mg/dL AST (0-32) U/L ALT (0-33) U/L Alkaline Phosphata se (35-105) IU/L Total Protein (6.6-8.7) g/dL Albumin (3.5-5.2) g/dL Globulin (1.3-4.6) g/dL Lipase (13-60) U/L HCG, Qual (Negative) Urine Color Yellow (Yellow) Urine Appearance Sl hazy (CLEAR) Urine pH 5 (5-7) Ur Specific Gravit y 1.030 (1.005-1.030) Urine Protein Neg (Negative) Urine Glucose (UA) Norm (Normal) Urine Ketones 1+ H (Negative) Urine Blood 2+ H (Negative) Urine Nitrate Negative (Negative) Urine Bilirubin Neg (Negative) Urine Urobilinogen Norm (Negative) mg/dL Ur Leukocyte Nevaeh ase Negative (Negative) Urine RBC 0-4 H (0-2) /hpf Urine WBC 0-4 H (0-5) /hpf Ur Squamous Epith Cells 10-15 H (0-5) /hpf Amorphous Sediment Not Reportable Urine Bacteria 1+ H (NONE) /hpf Urine Mucus Trace /hpf Urine Opiates Scre en Positive H (Negative) ng/mL Ur Barbiturates Sc reen Negative (Negative) ng/mL Ur Phencyclidine S crn Negative (Negative) ng/mL Ur Amphetamines Sc reen Negative (Negative) ng/mL U Benzodiazepines Scrn Positive H (Negative) ng/mL Urine Cocaine Scre en Negative (Negative) ng/mL U Marijuana (THC) Screen Positive H (Negative) ng/mL Ethyl Alcohol (0-10) mg/dL 05/09/20 05/09/20 05/09/20 Range/Units 17:37 17:37 17:37 WBC (4.0-10.0) 10^3/ uL RBC (4.1-5.3) 10^6/u L Hgb (11.5-15.3) g/dL Hct (37.0-47.0) % MCV (81-99) fL MCH (28.0-34.0) pg MCHC (30.0-36.0) g/dL RDW (12.1-15.1) % Plt Count (130-400) 10^3/c mm MPV (7.4-10.4) fL Neut % (Auto) % Lymph % (Auto) % [place] % (Auto) % Eos % (Auto) % Baso % (Auto) % Neut # (Auto) (1.8-7.7) 10^3/u L Lymph # (Auto) (0.8-4.8) 10^3/u L [place] # (Auto) (0.2-0.9) 10^3/u L Eos # (Auto) (0.0-0.8) 10^3/u L Baso # (Auto) (0.0-0.1) 10^3/u L Nucleated RBC % (a uto) % Nucleated RBCs # /100WBC Sodium 137 (136-145) mmol/L Potassium 4.0 (3.5-5.1) mmol/L Chloride 106 (98-107) mmol/L Carbon Dioxide 20 L (22-29) mmol/L Anion Gap 15.0 (5-19) BUN 12 (6-20) mg/dL Creatinine 0.7 (0.5-0.9) mg/dL GFR Calculation 98.9 (90-130) mL/min Glucose 98 (65-115) mg/dL Calculated Osmolal ity 284 L (285-295) mOsm/k g Calcium 9.4 (8.5-10.5) mg/dL Total Bilirubin 0.5 (0.15-1.2) mg/dL AST 26 (0-32) U/L ALT 16 (0-33) U/L Alkaline Phosphata se 87 (35-105) IU/L Total Protein 7.4 (6.6-8.7) g/dL Albumin 4.5 (3.5-5.2) g/dL Globulin 2.9 (1.3-4.6) g/dL Lipase 637 H (13-60) U/L HCG, Qual Negative (Negative) Urine Color (Yellow) Urine Appearance (CLEAR) Urine pH (5-7) Ur Specific Gravit y (1.005-1.030) Urine Protein (Negative) Urine Glucose (UA) (Normal) Urine Ketones (Negative) Urine Blood (Negative) Urine Nitrate (Negative) Urine Bilirubin (Negative) Urine Urobilinogen (Negative) mg/dL Ur Leukocyte Nevae[place] ase (Negative) Urine RBC (0-2) /hpf Urine WBC (0-5) /hpf Ur Squamous Epith Cells (0-5) /hpf Amorphous Sediment Urine Bacteria (NONE) /hpf Urine Mucus /hpf Urine Opiates Scre en (Negative) ng/mL Ur Barbiturates Sc reen (Negative) ng/mL Ur Phencyclidine S crn (Negative) ng/mL Ur Amphetamines Sc reen (Negative) ng/mL U Benzodiazepines Scrn (Negative) ng/mL Urine Cocaine Scre en (Negative) ng/mL U Marijuana (THC) Screen (Negative) ng/mL Ethyl Alcohol < 10 (0-10) mg/dL Imaging Data ^: CT Abd/Pel: Radiologist's impression: [facility] [address] [place] [address] CT Scan Report Signed Patient: Leah Chua #: [id number] : 1990Acct#:[id number] Age/Sex: 30 / FADM Date: 05/09/20 Loc: ERRoom/Bed: Attending Dr: Ordering Provider/Ordering MD: Guerline Jerry MD, [facility] Date of Service: 05/09/20 Procedure(s): CT abdomen pelvis w con* [id number] Accession Number(s): [id number] Report Number: [id number] PROCEDURE INFORMATION: Exam: CT Abdomen And Pelvis With Contrast Exam date and time: 05/09/2020 5:56 PM Age: 30 years old Clinical indication: Nausea and vomiting; Abdominal pain; Prior surgery; Surgery type: Gb, hyst; Additional info: Epigastric abd pain TECHNIQUE: Imaging protocol: Computed tomography of the abdomen and pelvis with intravenous contrast. Radiation optimization: All CT scans at this facility use at least one of these dose optimization techniques: automated exposure control; mA and/or kV adjustment per patient size (includes targeted exams where dose is matched to clinical indication); or iterative reconstruction. Contrast material: OMNI 300; Contrast volume: 75 ml; Contrast route: INTRAVENOUS (IV); COMPARISON: CT Abdomen/Pelvis Renal [id number] 06/01/2015 6:35 PM RADIATION DOSE METRICS: Total DLP (mGy-cm): 229.33 FINDINGS: Liver: Normal. No mass. Gallbladder and bile ducts: Cholecystectomy. Mild prominence of the bile ducts is most likely reservoir effect. Pancreas: Normal. No ductal dilation. Spleen: Normal. No splenomegaly. Adrenal glands: Normal. No mass. Kidneys and ureters: 2 mm calcification in the expected location of the distal right ureter is new since the prior study. No right hydronephrosis. The left kidney is normal. No ureteral calculus or hydronephrosis. Stomach and bowel: Unremarkable. No obstruction. No mucosal thickening. Appendix: The appendix is normal. Intraperitoneal space: Unremarkable. No free air. No significant fluid collection. Vasculature: Calcified phleboliths in the pelvis. Lymph nodes: Unremarkable. No enlarged lymph nodes. Urinary bladder: Unremarkable as visualized. Reproductive: Unremarkable as visualized. Bones/joints: Unremarkable. No acute fracture. Soft tissues: Unremarkable. CT/CT abdomen pelvis w con* [id number] IMPRESSION: 1. 2 mm calcification in the right pelvis is most likely a nonobstructing right distal ureteral calculus. No hydronephrosis. 2. Right renal calculus. 3. No other abnormality identified. Radiation Dose CTDIVOL = (mGy): DLP = 229.33 (mGy-cm) Dictated By:Adan Jones Signed By:Adan JonesSignerica Date/Time:05/09/201832 DD/ 30 Discharge Plan Discharge Patient Disposition: Home Clinical Impression: Right ureteral calculus Pancreatitis Qualifiers: Chronicity: acute Pancreatitis type: unspecified pancreatitis type Acute pancreatitis complication: no infection or necrosis Qualified Code(s): K85.90 - Acute pancreatitis without necrosis or infection, unspecified Condition: Stable Prescriptions: [place] 5-325 mg tablet 1 tab PO Q6H PRN (Reason: pain) Qty: 20 RF: 0 Zofran 4 mg tablet 4 mg PO Q8H PRN (Reason: nausea and vomiting) Qty: 30 RF: 0 Continued Tylenol 325 mg Tablet 325 - 650 mg PO Q4H PRN (Reason: Pain) RF: 0 aysxbuysb-ABG-FW-acetaminophen 7.5-60-30-1,000 mg/30 mL Liquid 30 ml PO QID PRN (Reason: cough/cold symptoms) RF: 0 trazodone 50 mg Tablet 50 mg PO BEDTIME PRN (Reason: Insomnia) Qty: 10 RF: 2 prazosin 1 mg Capsule 1 mg PO BEDTIME Qty: 30 RF: 2 fluoxetine 20 mg Capsule 20 mg PO DAILY Qty: 30 RF: 2 diazepam 5 mg Tablet 5 mg PO BID Qty: 60 RF: 2 aripiprazole 2 mg Tablet 2 mg PO DAILY Qty: 30 RF: 2 Discharge Orders: Discharge ED (Routine); Ordered 05/09/20 Ordered By: Guerline Jerry Discharge Diet: Advance as tolerated Discharge Activity: Resume usual activity Patient Instructions: Pancreatitis (ED) Activity Restrictions/Additional Instructions: Return for any new or worsening symptoms. Follow-up with your primary care provider within 3 days. Consume a clear liquid diet for the next 1 or 2 days, then slowly advance your diet to full liquid diet like soups then soft diet and eventually a regular diet. Take the pain medicine as needed as well as the nausea medicine. Coding Level of Care Code ED [employer] for [employer] 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
[2020-05-09] MEDS: morphine 4 mg/mL SDV 1 mL IVP (17:27)
--- NOTE | 2020-05-09 17:36 | CTR_ITS ---
PROCEDURE INFORMATION: Exam: CT Abdomen And Pelvis With Contrast Exam date and time: 05/09/2020 5:56 PM Age: 30 years old Clinical indication: Nausea and vomiting; Abdominal pain; Prior surgery; Surgery type: Gb, hyst; Additional info: Epigastric abd pain TECHNIQUE: Imaging protocol: Computed tomography of the abdomen and pelvis with intravenous contrast. Radiation optimization: All CT scans at this facility use at least one of these dose optimization techniques: automated exposure control; mA and/or kV adjustment per patient size (includes targeted exams where dose is matched to clinical indication); or iterative reconstruction. Contrast material: OMNI 300; Contrast volume: 75 ml; Contrast route: INTRAVENOUS (IV); COMPARISON: CT Abdomen/Pelvis Renal [id number] 06/01/2015 6:35 PM RADIATION DOSE METRICS: Total DLP (mGy-cm): 229.33 FINDINGS: Liver: Normal. No mass. Gallbladder and bile ducts: Cholecystectomy. Mild prominence of the bile ducts is most likely reservoir effect. Pancreas: Normal. No ductal dilation. Spleen: Normal. No splenomegaly. Adrenal glands: Normal. No mass. Kidneys and ureters: 2 mm calcification in the expected location of the distal right ureter is new since the prior study. No right hydronephrosis. The left kidney is normal. No ureteral calculus or hydronephrosis. Stomach and bowel: Unremarkable. No obstruction. No mucosal thickening. Appendix: The appendix is normal. Intraperitoneal space: Unremarkable. No free air. No significant fluid collection. Vasculature: Calcified phleboliths in the pelvis. Lymph nodes: Unremarkable. No enlarged lymph nodes. Urinary bladder: Unremarkable as visualized. Reproductive: Unremarkable as visualized. Bones/joints: Unremarkable. No acute fracture. Soft tissues: Unremarkable. CT/CT abdomen pelvis w con* [id number] IMPRESSION: 1. 2 mm calcification in the right pelvis is most likely a nonobstructing right distal ureteral calculus. No hydronephrosis. 2. Right renal calculus. 3. No other abnormality identified. Radiation Dose CTDIVOL = (mGy): DLP = 229.33 (mGy-cm)
[2020-05-09 17:45] LABS: Basophils % 0.5 %; Eosinophils # 0.1 10^3/uL (0.0-0.8); Eosinophils % 0.8 %; Hematocrit 39.2 % (37.0-47.0); Hemoglobin 13.5 g/dL (11.5-15.3); Lymphocytes # 1.8 10^3/uL (0.8-4.8); Lymphocytes % 22.3 %; Mean Corpuscular HGB Conc 34.4 g/dL (30.0-36.0); Mean Corpuscular Hemoglobin 31.4 pg (28.0-34.0); Mean Corpuscular Volume 91.2 fL (81-99); Mean Platelet Volume 10.2 fL (7.4-10.4); Monocytes # 0.6 10^3/uL (0.2-0.9); Monocytes % 7.2 %; Neutrophils # 5.68 10^3/uL (1.8-7.7); Nucleated Red Blood Cells % 0 %; Platelet Count 191 10^3/cmm (130-400); White Blood Count 8.2 10^3/uL (4.0-10.0)
[2020-05-09 18:04] LABS: Alanine Aminotransferase 16 U/L (0-33); Albumin Level 4.5 g/dL (3.5-5.2); Alkaline Phosphatase 87 IU/L (35-105); Aspartate Amino Transferase 26 U/L (0-32); Blood Urea Nitrogen 12 mg/dL (6-20); Calcium 9.4 mg/dL (8.5-10.5); Carbon Dioxide 20 mmol/L (22-29); Chloride 106 mmol/L (98-107); Globulin 2.9 g/dL (1.3-4.6); Glomerular Filtration Rate 98.9 mL/min (90-130); Glucose 98 mg/dL (65-115); Osmolality Calculated 284 mOsm/kg (285-295); Sodium 137 mmol/L (136-145); Total Bilirubin 0.5 mg/dL (0.15-1.2); Total Protein 7.4 g/dL (6.6-8.7)
[2020-05-09] MEDS: iohexol 300 mg/mL 100 mL Btl IV (18:06)
[2020-05-09 18:11] LABS: HCG Qualitative Urine. Negative (Negative)
[2020-05-09 18:12] LABS: Add Urine Microscopic? YES; Bilirubin Urine Neg (Negative); Blood Urine 2+ (Negative); Glucose Urine UA Norm (Normal); Ketones Urine 1+ (Negative); Leukocyte Esterase Urine Negative (Negative); Nitrate Urine Negative (Negative); Protein Urine Neg (Negative); Urine Appearance SL Hazy (CLEAR); Urine Color Yellow (Yellow); Urobilinogen Urine Norm (Negative); pH Urine 5 (5-7)
[2020-05-09 18:16] LABS: Bacteria Urine 1+ /hpf; Mucus Urine TRACE /hpf; RBC Urine 0-4 /hpf (0-2); WBC Urine 0-4 /hpf (0-5)
[2020-05-09 18:17] LABS: Lipase 637 U/L (13-60)
[2020-05-09 18:17] LABS: Add Urine Culture? No
--- NOTE | 2020-05-09 18:40 | PC.NURSE ---
NSR PER EMS MONITOR.
[2020-05-09 19:51] LABS: Alcohol Level < 10 mg/dL (0-10)
[2020-05-09 20:21] LABS: Amphetamines Screen Urine Negative (Negative); Barbiturates Screen Urine Negative (Negative); Benzodiazepines Screen Urine Positive (Negative); Cocaine Screen Urine Negative (Negative); Opiate Screen Urine Positive (Negative); PCP Screen Urine Negative (Negative); THC Screen Urine Positive (Negative)
[2020-05-09] MEDS: HYDROmorphone 1 mg/mL INJ 1 mL 0.5 MG IVP (20:29)
== END 2020-05-09 21:49 | disposition home or self-care (01) ==
PROVIDERS: Emergency Medicine; Emergency Provider Family Medicine
DX: K85.90 Acute pancreatitis without necrosis or infection, unspecified (principal); N20.1 Calculus of ureter
CPT/HCPCS: 12345; 74177; 80053; 80306; 80307; 81001; 81025; 83690; 85025; 96374; 96375; 99283; J1170; J2270; Q9967

== ENCOUNTER 2020-05-21 15:38 | Inpatient (IN) | payer MEDICAID, SELFPAY ==
[2020-05-21] VITALS (8 sets, daily range): BP systolic 86–113; BP diastolic 39–73; PULSE 58–82; RESP 18; TEMP 36.7–36.8; O2SAT 94–100; BMI 23.0
--- NOTE | 2020-05-21 15:49 | ED_ITS ---
HPI - Psych General: Chief Complaint: Psychiatric Symptoms Stated Complaint: Psych Related Issues/Sent from [facility] Time Seen by Provider: 05/21/20 15:42 History of Present Illness: HPI Narrative: 30-year-old female sent here from [facility]. She relates she has problems with PTSD she was placed on Valium she is at that was giving her stomach trouble and went to an ER and was put on Ativan. She states she still having dreams when she wakes up she wishes she would not wake up. She will not explicitly say she wishes to harm herself but alludes to that multiple times while I was talking to her. She denies doing anything with the intent of harming herself or anyone else. Patient states she has had problems with pancreatitis in the past has been having more abdominal pain lately which she states is due to her H. pylori and her pancreatitis. complaint: feels depressed Onset (ago): week(s) Duration: constant History of same: Yes Relieving factors: medication Exacerbating factors: none Context: new medication(s) Associated psychiatric symptoms: depression and suicidal ideation (Vaguely stated) Associated symptoms: Reports depression and suicidal ideation; Deny auditory hallucinations, visual hallucinations, delusions, homicidal ideation or racing thoughts Treatments prior to arrival: none Review of Systems Const: Denies: fever(s), chills, body aches, change in appetite, fatigue or malaise ENMT: Denies: throat pain, ear or mastoid pain, nasal discharge or nasal congestion Card: Denies: chest pain, edema, dyspnea on exertion or orthopnea Resp: Denies: dyspnea, productive cough or non-productive cough GI: Reports: abdominal pain and nausea; Denies: vomiting, hematemesis, coffee ground emesis, diarrhea, constipation, bloating, hematochezia or melena : Denies: flank pain, difficulty voiding, dysuria, urinary frequency or urinary urgency Skin/Breast: Denies: rash or pruritus Psych: Reports: depression and suicidal ideation; Denies: visual hallucinations, auditory hallucinations or homicidal ideation [facility] ED PFSH: Medical History Endometriosis Surgical History History of cholecystectomy History of hysterectomy History of tonsillectomy and adenoidectomy Female Reproductive History: Date of last menstrual period: 10/07/11 Physical Exam Const: COMMON NORMALS: no acute distress GENERAL APPEARANCE: cooperative and comfortable ORIENTATION/CONSCIOUSNESS: Yes awake, Yes oriented to person, Yes oriented to place and Yes oriented to time HENMT: COMMON NORMALS: normocephalic, atraumatic and hearing grossly normal bilaterally HEAD & SCALP: normocephalic and atraumatic Neck/C-Spine: COMMON NORMALS: no JVD Resp: COMMON NORMALS: normal respiratory effort, No retractions, No use of accessory muscles and clear to auscultation bilaterally AUSCULTATION: clear to auscultation bilaterally Cardio: COMMON NORMALS: no JVD, regular rate, regular rhythm and No murmurs present (Cardio) RATE: regular rate RHYTHM: regular rhythm GI: COMMON NORMALS: Soft to palpation and No hepatosplenomegaly present AUSCULTATION: Yes normoactive bowel sounds PALPATION: Yes Soft to palpation, No Tenderness to palpation present (GI), No Guarding due to palpation present (GI) and Yes No hepatosplenomegaly present Extremity: COMMON NORMALS: normal to inspection, capillary refill normal, no clubbing, cyanosis or edema, no calf tenderness and no pedal edema Neuro: SENSORIUM/ORIENTATION: Yes oriented to person, Yes oriented to place and Yes oriented to time Psych: THOUGHT CONTENT: No delusions Skin: COMMON NORMALS: no rashes or lesions noted GENERAL SKIN EXAM: no rashes or lesions noted MDM - Psych MDM Narrative: Medical decision making narrative: She is still very noncommittal when I asked her about suicidal ideation she falls back to complaining that when she wakes up she wishes she was not who she was, wishes she was out of her skin or with someone else. She still denies having done anything but will not rule out or say specifically that she will not harm herself. Discussed with Dr. Shah given this response I think probably best to go ahead and admit her to the [facility] to evaluate where she is at with her PTSD anxiety and some of these vague suicidal ideations. He agrees. She does have a fair amount of fluid in her stomach as well as some fluid-filled loops of bowel but there is no sign of bowel obstruction I suspect she may have chronic cannabinoid syndrome discussed this with her as well. Lab Data: Labs: Lab Results 05/21/20 05/21/20 05/21/20 Range/Units 16:01 16:01 16:03 WBC 5.3 (4.0-10.0) 10^3/ uL RBC 4.10 (4.1-5.3) 10^6/u L Hgb 12.9 (11.5-15.3) g/dL Hct 39.5 (37.0-47.0) % MCV 96.3 (81-99) fL MCH 31.5 (28.0-34.0) pg MCHC 32.7 (30.0-36.0) g/dL RDW 12.1 (12.1-15.1) % Plt Count 185 (130-400) 10^3/c mm MPV 9.9 (7.4-10.4) fL Neut % (Auto) 59.1 % Lymph % (Auto) 29.5 % [place] % (Auto) 7.2 % Eos % (Auto) 3.6 % Baso % (Auto) 0.6 % Neut # (Auto) 3.13 (1.8-7.7) 10^3/u L Lymph # (Auto) 1.6 (0.8-4.8) 10^3/u L [place] # (Auto) 0.4 (0.2-0.9) 10^3/u L Eos # (Auto) 0.2 (0.0-0.8) 10^3/u L Baso # (Auto) 0.0 (0.0-0.1) 10^3/u L Nucleated RBC % (a uto) 0 % Nucleated RBCs # 0.0 /100WBC Sodium 136 (136-145) mmol/L Potassium 4.3 (3.5-5.1) mmol/L Chloride 104 (98-107) mmol/L Carbon Dioxide 26 (22-29) mmol/L Anion Gap 10.3 (5-19) BUN 15 (6-20) mg/dL Creatinine 0.6 (0.5-0.9) mg/dL GFR Calculation 118.2 (90-130) mL/min Glucose 113 (65-115) mg/dL Calculated Osmolal ity 284 L (285-295) mOsm/k g Calcium 9.4 (8.5-10.5) mg/dL Total Bilirubin 0.2 (0.15-1.2) mg/dL AST 14 (0-32) U/L ALT 17 (0-33) U/L Alkaline Phosphata se 130 H (35-105) IU/L Total Protein 6.9 (6.6-8.7) g/dL Albumin 4.1 (3.5-5.2) g/dL Globulin 2.8 (1.3-4.6) g/dL Lipase 535 H (13-60) U/L HCG, Qual Negative (Negative) Urine Color (Yellow) Urine Appearance (CLEAR) Urine pH (5-7) Ur Specific Gravit y (1.005-1.030) Urine Protein (Negative) Urine Glucose (UA) (Normal) Urine Ketones (Negative) Urine Blood (Negative) Urine Nitrate (Negative) Urine Bilirubin (Negative) Urine Urobilinogen (Negative) mg/dL Ur Leukocyte Nevaeh ase (Negative) Salicylates < 0.3 L (3-10) mg/dL Urine Opiates Scre en (Negative) ng/mL Acetaminophen < 5.0 L (10-30) ug/mL Ur Barbiturates Sc reen (Negative) ng/mL Ur Phencyclidine S crn (Negative) ng/mL Ur Amphetamines Sc reen (Negative) ng/mL U Benzodiazepines Scrn (Negative) ng/mL Urine Cocaine Scre en (Negative) ng/mL U Marijuana (THC) Screen (Negative) ng/mL Ethyl Alcohol < 10 (0-10) mg/dL 05/21/20 05/21/20 Range/Units 16:03 16:03 WBC (4.0-10.0) 10^3/ uL RBC (4.1-5.3) 10^6/u L Hgb (11.5-15.3) g/dL Hct (37.0-47.0) % MCV (81-99) fL MCH (28.0-34.0) pg MCHC (30.0-36.0) g/dL RDW (12.1-15.1) % Plt Count (130-400) 10^3/c mm MPV (7.4-10.4) fL Neut % (Auto) % Lymph % (Auto) % [place] % (Auto) % Eos % (Auto) % Baso % (Auto) % Neut # (Auto) (1.8-7.7) 10^3/u L Lymph # (Auto) (0.8-4.8) 10^3/u L [place] # (Auto) (0.2-0.9) 10^3/u L Eos # (Auto) (0.0-0.8) 10^3/u L Baso # (Auto) (0.0-0.1) 10^3/u L Nucleated RBC % (a uto) % Nucleated RBCs # /100WBC Sodium (136-145) mmol/L Potassium (3.5-5.1) mmol/L Chloride (98-107) mmol/L Carbon Dioxide (22-29) mmol/L Anion Gap (5-19) BUN (6-20) mg/dL Creatinine (0.5-0.9) mg/dL GFR Calculation (90-130) mL/min Glucose (65-115) mg/dL Calculated Osmolal ity (285-295) mOsm/k g Calcium (8.5-10.5) mg/dL Total Bilirubin (0.15-1.2) mg/dL AST (0-32) U/L ALT (0-33) U/L Alkaline Phosphata se (35-105) IU/L Total Protein (6.6-8.7) g/dL Albumin (3.5-5.2) g/dL Globulin (1.3-4.6) g/dL Lipase (13-60) U/L HCG, Qual (Negative) Urine Color Yellow (Yellow) Urine Appearance Clear (CLEAR) Urine pH 5 (5-7) Ur Specific Gravit y 1.020 (1.005-1.030) Urine Protein Neg (Negative) Urine Glucose (UA) Norm (Normal) Urine Ketones Negative (Negative) Urine Blood Neg (Negative) Urine Nitrate Negative (Negative) Urine Bilirubin Neg (Negative) Urine Urobilinogen Norm (Negative) mg/dL Ur Leukocyte Nevaeh ase Negative (Negative) Salicylates (3-10) mg/dL Urine Opiates Scre en Negative (Negative) ng/mL Acetaminophen (10-30) ug/mL Ur Barbiturates Sc reen Negative (Negative) ng/mL Ur Phencyclidine S crn Negative (Negative) ng/mL Ur Amphetamines Sc reen Negative (Negative) ng/mL U Benzodiazepines Scrn Positive H (Negative) ng/mL Urine Cocaine Scre en Negative (Negative) ng/mL U Marijuana (THC) Screen Positive H (Negative) ng/mL Ethyl Alcohol (0-10) mg/dL Discharge Plan Discharge Patient Disposition: Admitted As Inpatient Clinical Impression: Suicidal ideation, Post traumatic stress disorder (PTSD), Chronic pancreatitis, Cannabinoid hyperemesis syndrome Condition: Stable Coding Level of Care Code 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
[2020-05-21 16:14] LABS: Add Urine Microscopic? NO
[2020-05-21 16:18] LABS: Basophils % 0.6 %; Eosinophils # 0.2 10^3/uL (0.0-0.8); Eosinophils % 3.6 %; Hematocrit 39.5 % (37.0-47.0); Hemoglobin 12.9 g/dL (11.5-15.3); Lymphocytes # 1.6 10^3/uL (0.8-4.8); Lymphocytes % 29.5 %; Mean Corpuscular HGB Conc 32.7 g/dL (30.0-36.0); Mean Corpuscular Hemoglobin 31.5 pg (28.0-34.0); Mean Corpuscular Volume 96.3 fL (81-99); Mean Platelet Volume 9.9 fL (7.4-10.4); Monocytes # 0.4 10^3/uL (0.2-0.9); Monocytes % 7.2 %; Neutrophils # 3.13 10^3/uL (1.8-7.7); Neutrophils % 59.1 %; Nucleated Red Blood Cells % 0 %; Platelet Count 185 10^3/cmm (130-400); Red Cell Distribution Width 12.1 % (12.1-15.1); White Blood Count 5.3 10^3/uL (4.0-10.0)
[2020-05-21 16:25] LABS: Bilirubin Urine Neg (Negative); Blood Urine Neg (Negative); Glucose Urine UA Norm (Normal); Ketones Urine Negative (Negative); Leukocyte Esterase Urine Negative (Negative); Nitrate Urine Negative (Negative); Protein Urine Neg (Negative); Urine Appearance Clear (CLEAR); Urine Color Yellow (Yellow); Urobilinogen Urine Norm (Negative); pH Urine 5 (5-7)
[2020-05-21 16:26] LABS: HCG Qualitative Urine. Negative (Negative)
[2020-05-21 16:34] LABS: Amphetamines Screen Urine Negative (Negative); Barbiturates Screen Urine Negative (Negative); Benzodiazepines Screen Urine Positive (Negative); Cocaine Screen Urine Negative (Negative); Opiate Screen Urine Negative (Negative); PCP Screen Urine Negative (Negative); THC Screen Urine Positive (Negative)
[2020-05-21 16:37] LABS: Alanine Aminotransferase 17 U/L (0-33); Albumin Level 4.1 g/dL (3.5-5.2); Alkaline Phosphatase 130 IU/L (35-105); Anion Gap 10.3 (5-19); Aspartate Amino Transferase 14 U/L (0-32); Blood Urea Nitrogen 15 mg/dL (6-20); Calcium 9.4 mg/dL (8.5-10.5); Carbon Dioxide 26 mmol/L (22-29); Chloride 104 mmol/L (98-107); Globulin 2.8 g/dL (1.3-4.6); Glomerular Filtration Rate 118.2 mL/min (90-130); Glucose 113 mg/dL (65-115); Osmolality Calculated 284 mOsm/kg (285-295); Potassium 4.3 mmol/L (3.5-5.1); Sodium 136 mmol/L (136-145); Total Bilirubin 0.2 mg/dL (0.15-1.2); Total Protein 6.9 g/dL (6.6-8.7)
[2020-05-21 16:39] LABS: Acetaminophen < 5.0 ug/mL (10-30); Alcohol Level < 10 mg/dL (0-10); Salicylate < 0.3 mg/dL (3-10)
[2020-05-21 16:46] LABS: Lipase 535 U/L (13-60)
--- NOTE | 2020-05-21 17:02 | CTR_ITS ---
PROCEDURE INFORMATION: Exam: CT Abdomen And Pelvis With Contrast Exam date and time: 05/21/2020 5:18 PM Age: 30 years old Clinical indication: Constipation and nausea; Abdominal pain; Epigastric; Prior surgery; Surgery type: Hyst, exploratory, gb; Additional info: Abd pain TECHNIQUE: Imaging protocol: Computed tomography of the abdomen and pelvis with intravenous contrast. Sagittal and coronal reformatted images were created and reviewed. Radiation optimization: All CT scans at this facility use at least one of these dose optimization techniques: automated exposure control; mA and/or kV adjustment per patient size (includes targeted exams where dose is matched to clinical indication); or iterative reconstruction. Contrast material: OMNI 300; Contrast volume: 75 ml; Contrast route: INTRAVENOUS (IV); COMPARISON: CT abdomen pelvis w con* [id number] 05/09/2020 5:55 PM RADIATION DOSE METRICS: Total DLP (mGy-cm): 235.84 FINDINGS: Lungs: Visualized lungs are clear. Pleural space: No pleural effusion. Heart: Visualized portions of the heart are unremarkable. Liver: The liver is unremarkable. Gallbladder and bile ducts: Stable findings consistent with a previous cholecystectomy. Stable dilatation of the biliary ducts, not unexpected in a patient who has had a prior cholecystectomy. Pancreas: The pancreas is unremarkable. No pancreatic ductal dilatation. Spleen: The spleen is unremarkable. Adrenal glands: The right and left adrenal glands are unremarkable. Kidneys and ureters: Stable non-obstructing stone in the right kidney measuring 2.2 mm. The left kidney is unremarkable. The right and left ureters are unremarkable. Stomach and bowel: Areas of increased density in the lumen of the stomach that may be due to swallowed medications. Fluid within the small bowel and colon without evidence of bowel wall thickening. Appendix: Few small appendicoliths in the lumen of the appendix. No evidence for appendicitis. Intraperitoneal space: No free intraperitoneal air. No ascites. No loculated fluid collections to suggest an abscess. Vasculature: No evidence for aortic aneurysm or aortic dissection. Hepatic veins, portal veins, splenic vein, and SMV are patent. Lymph nodes: No lymphadenopathy. Urinary bladder: The bladder is incompletely filled, which can limit evaluation. No focal abnormality in the bladder however. The bladder is incompletely filled, which can limit evaluation. No focal abnormality in the bladder however. Reproductive: Stable changes consistent with a previous hysterectomy. The right and left ovaries are not definitely visualized. Patient may have had a previous bilateral oophorectomy. Bones/joints: No acute fracture. Soft tissues: Unremarkable. CT/CT abdomen pelvis w con* [id number] IMPRESSION: 1. Fluid within the small bowel and colon without evidence of bowel wall thickening. This may reflect viral gastroenteritis in the appropriate clinical situation. 2. Stable nonobstructing right renal stone. 3. Areas of increased density in the lumen of the stomach that may be due to swallowed medications. Recommend clinical correlation. 4. Stable changes consistent with a previous hysterectomy. 5. The right and left ovaries are not definitely visualized. Patient may have had a previous bilateral oophorectomy. Recommend clinical correlation. 6. Incidental/nonacute findings are listed in the report. Radiation Dose CTDIVOL = (mGy): DLP = 235.84 (mGy-cm)
[2020-05-21] MEDS: iohexol 300 mg/mL 100 mL Btl IV (17:31)
[2020-05-21] MEDS: LORazepam 1 mg Tablet PO (17:36)
[2020-05-21] MEDS: sodium chloride 0.9% 1,000 ML 999 ML IV (17:37)
[2020-05-21] MEDS: ondansetron 2 mg/ML SDV 2 mL 4 MG IVP (17:37)
[2020-05-21] MEDS: trazodone 50 mg Tablet PO (21:38)
[2020-05-21] MEDS: OLANZapine 5 mg ODT PO (21:38)
[2020-05-21] MEDS: prazosin 1 mg Capsule 2 MG PO (21:38)
--- NOTE | 2020-05-21 21:40 | PC.NURSE ---
ADMITTED FROM ER AT [facility], APPEARS NERVOUS, SAYS WAS HERE 2 WEEKS AG0, HAS BEEN HAVING TROUBLE WITH HER STOMACH FROM MEDS AND FEELS VERY DEPRESSED.
--- NOTE | 2020-05-21 23:57 | PC.NURSE ---
Addendum entered by Keira Bennett RN 05/22/20 00:03: followup @2200 PT is resting peacefully. No s/s of distress noted at this time. Will continue to monitor pt Original Note: Trazodone/Zyprexa Zydis @213 NEW Admit Pt is a returning patient to this unit. She is experiencing AH and disturbing vivid dreams. Called the physician to begin home medications. Dr. Shah increased Minipress to 2mg PO. Pt is visibly upset, crying, hearing her mothers voice. She said she has not rested in 3 days. Pt was given 50mg PO Trazodone and 5mg PO Zyprexa Zydis PRN's. She returned to her room without incident.
[2020-05-22 06:00] VITALS: BP 92/53; PULSE 67; RESP 14; TEMP 37.7; O2SAT 97
[2020-05-22] MEDS: ARIPiprazole 2 mg Tablet PO (08:35)
[2020-05-22] MEDS: pantoprazole DR 40 mg Tablet PO (08:35)
[2020-05-22] MEDS: fluoxetine 20 mg Capsule PO (08:35)
--- NOTE | 2020-05-22 12:34 | P.HP_ITS ---
Providers/Chief Complaint Admitting Physician: Kevon Shah MD Primary Care Provider: JOSIANE Fountain Chief Complaint: Psych Related Issues/Sent from [facility] HPI NPU History of Present Illness Leah Chua is a 30 year old female who presented to the department with the following report: Chief Complaint: Psychiatric Symptoms Stated Complaint: Psych Related Issues/Sent from [facility] Time Seen by Provider: 05/21/20 15:42 History of Present Illness: HPI Narrative: 30-year-old female sent here from [facility]. She relates she has problems with PTSD she was placed on Valium she is at that was giving her stomach trouble and went to an ER and was put on Ativan. She states she still having dreams when she wakes up she wishes she would not wake up. She will not explicitly say she wishes to harm herself but alludes to that multiple times while I was talking to her. She denies doing anything with the intent of harming herself or anyone else. Patient states she has had problems with pancreatitis in the past has been having more abdominal pain lately which she states is due to her H. pylori and her pancreatitis. complaint: feels depressed Onset (ago): week(s) Duration: constant History of same: Yes Relieving factors: medication Exacerbating factors: none Context: new medication(s) Associated psychiatric symptoms: depression and suicidal ideation (Vaguely stated) Associated symptoms: Reports depression and suicidal ideation; Deny auditory hallucinations, visual hallucinations, delusions, homicidal ideation or racing thoughts Treatments prior to arrival: none Review of Systems Const: Denies: fever(s), chills, body aches, change in appetite, fatigue or malaise ENMT: Denies: throat pain, ear or mastoid pain, nasal discharge or nasal co ngestion Card: Denies: chest pain, edema, dyspnea on exertion or orthopnea Resp: Denies: dyspnea, productive cough or non-productive cough GI: Reports: abdominal pain and nausea; Denies: vomiting, hematemesis, coffee ground emesis, diarrhea, constipation, bloating, hematochezia or melena : Denies: flank pain, difficulty voiding, dysuria, urinary frequency or urinary urgency Skin/Breast: Denies: rash or pruritus Psych: Reports: depression and suicidal ideation; Denies: visual hallucinations, auditory hallucinations or homicidal ideation PFSH ED PFSH: Medical History Endometriosis Surgical History History of cholecystectomy History of hysterectomy History of tonsillectomy and adenoidectomy Female Reproductive History: Date of last menstrual period: 10/07/11 Physical Exam Const: COMMON NORMALS: no acute distress GENERAL APPEARANCE: cooperative and comfortable ORIENTATION/CONSCIOUSNESS: Yes awake, Yes oriented to person, Yes oriented to place and Yes oriented to time HENMT: COMMON NORMALS: normocephalic, atraumatic and hearing grossly normal bilaterally HEAD & SCALP: normocephalic and atraumatic Neck/C-Spine: COMMON NORMALS: no JVD Resp: COMMON NORMALS: normal respiratory effort, No retractions, No use of accessory muscles and clear to auscultation bilaterally AUSCULTATION: clear to auscultation bilaterally Cardio: COMMON NORMALS: no JVD, regular rate, regular rhythm and No murmurs present (Cardio) RATE: regular rate RHYTHM: regular rhythm GI: COMMON NORMALS: Soft to palpation and No hepatosplenomegaly present AUSCULTATION: Yes normoactive bowel sounds PALPATION: Yes Soft to palpation, No Tenderness to palpation present (GI), No Guarding due to palpation present (GI) and Yes No hepatosplenomegaly present Extremity: COMMON NORMALS: normal to inspection, capillary refill normal, no clubbing, cyanosis or edema, no calf tenderness and no pedal edema Neuro: SENSORIUM/ORIENTATION: Yes oriented to person, Yes oriented to place and Yes oriented to time Psych: THOUGHT CONTENT: No delusions Skin: COMMON NORMALS: no rashes or lesions noted GENERAL SKIN EXAM: no rashes or lesions noted MDM - Psych MDM Narrative: Medical decision making narrative: She is still very noncommittal when I asked her about suicidal ideation she falls back to complaining that when she wakes up she wishes she was not who she was, wishes she was out of her skin or with someone else. She still denies having done anything but will not rule out or say specifically that she will not harm herself. Discussed with Dr. Shah given this response I think probably best to go ahead and admit her to the NPU to evaluate where she is at with her PTSD anxiety and some of these vague suicidal ideations. He agrees. She does have a fair amount of fluid in her stomach as well as some fluid-filled loops of bowel but there is no sign of bowel obstruction I suspect she may have chronic cannabinoid syndrome discussed this with her as well. She is admitted to the neuropsychiatric unit for definitive treatment of those issues. This morning she reports that she has really been struggling and has not been able to get into [facility]. She had been put on Valium that was switched to Ativan but she was not given a significant prescription and so therefore would not be able to get to the [facility] appointment. She says that the 0.5 mg twice a day was helpful. She reports that since he hasn't had the medication as much she has had worsening of her PTSD symptoms and her depression. We discussed the risks, benefits and alternatives of increasing her Prozac and adding Inderal and she understood and agreed to proceed as is documented in this note. We reviewed her 05/02/2020 inpatient eval and she agreed it was a accurate representation of her situation save her no longer working at [employer] secondary to struggle with anxiety. An excerpt of that note is included below. Per her 05/03/2020 [facility] [place]: History of Present Illness Leah Chua is a 30-year-old woman who has self admitted herself to the psychiatric unit to prevent impulsive self-injurious behavior. She has been laboring under considerable psychoemotional stress and has been having suicidal thoughts but without intent or plan. Her performance at work has declined to such a degree that she may lose her employment. She describes herself as having anxiety all the time. However what she describes is someone with severe clinical depression. She has anhedonia, feelings of hopelessness and worthlessness, irritability, severe insomnia, poor concentration, and suicidal ideation. She has never had an intent or plan. She denies the presence of au ditory or visual hallucinations. Her urine drug screen is positive for marijuana and benzodiazepines. However she is free of alcohol and other illegal substances. She desires help with her symptoms so that she can return to her employment and taking care of her 8-year-old son. Past psychiatric history: The patient describes herself as having multiple medication trials since for starting a Vistaril at age 17. She says the Vistaril has persistently given her for anxiety but it does not help very much. She has been helped the most by combination of Prozac and Valium. She stopped taking it 4 years ago because she wanted to try and maintain her life without medications. She is also taking trazodone and Abilify and multiple depression pills. Abilify was not tolerated. She says that gabapentin caused seizures but that was while she was in rehab for methamphetamine. She has been in rehab 1 time 5 years ago to resolve a problem with methamphetamine dependence. 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 She was not confronted about her marijuana use. Family psychiatric history is positive for multiple diagnoses in a variety of numbers. She has a uncle and several cousins diagnosed with schizophrenia. Many of her family have been diagnosed either with anxiety or bipolar disorder. It is also apparent that substance use is a general problem in the family. Social history: The patient grew up in [place] and is a high school graduate. 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 She works 14 hours/day. She has an 18-year-old son and is diagnosed with autism who is cared for by her boyfriend's mother. Her performance at work has declined to such a degree that she may lose her employment. Meds NPU Home Medications Medication Instructions Recorded Confirmed Last Taken Type trazodone 50 mg PO BEDTIME PRN #10 tab 05/05/20 05/21/20 Unknown Rx cykpxljsj-BPL-YO-acetaminophen 30 ml PO QID PRN 05/09/20 05/21/20 05/08/20 History ondansetron HCl [Zofran] 4 mg PO Q8H PRN #30 tab 05/09/20 05/21/20 05/21/20 Rx aripiprazole 2 mg PO DAILY@0800 05/21/20 05/21/20 05/21/20 History fluoxetine 20 mg PO DAILY@0800 05/21/20 05/21/20 05/21/20 History pantoprazole 40 mg PO DAILY@0800 05/21/20 05/21/20 05/21/20 History prazosin 1 mg PO BEDTIME@2100 05/21/20 05/21/20 05/20/20 History Allergies Allergy/AdvReac Type Severity Reaction Status Date / Time buspirone [From BuSpar] Allergy ADR-Cramping Verified 05/09/20 17:11 of the Muscles gabapentin [From Neurontin] Allergy ADR-Seizure Verified 05/09/20 17:11 metoclopramide [From Reglan] AdvReac ADR-Irritab Verified 05/09/20 17:11 le prochlorperazine AdvReac ADR-Irritab Verified 05/09/20 17:11 [From Compazine] le [facility] NPU PFSH: Medical History Endometriosis Surgical History History of cholecystectomy History of hysterectomy History of tonsillectomy and adenoidectomy Mental Status Exam MSE Comments: This is a well-nourished well-developed mixed female with hospital scrubs on with appropriate grooming and limited eye contact. No abnormal movements except for mild psychomotor agitation. Coope rative with exam in mild to moderate distress. Speech was normal rate decreased volume. Mood described as depressed and anxious, affect congruent. Thought process organized. Thought content: Patient endorsed passive wish but no acute suicidal or homicidal ideation, there were no delusions reported noted, she denied any auditory or visual hallucinations. Attention and concentration were intact and memory was reliable but none more formally tested. She is alert and oriented ?3. Insight and judgment were fair. Vitals/I&O/Wt Last Vital Signs Temp 99.8 F H 05/22/20 06:00 Pulse 67 05/22/20 06:00 Resp 14 05/22/20 06:00 BP 92/53 05/22/20 06:00 Pulse Ox 97 05/22/20 06:00 Weight last 48 hrs Weight 55.338 kg Data NPU : 05/21/20 16:01 05/21/20 16:01 A&P Assessment and plan (1) Suicidal ideation: Status: Acute (2) Post traumatic stress disorder (PTSD): Status: Acute (3) Chronic pancreatitis: Status: Acute (4) Cannabinoid hyperemesis syndrome: Status: Acute (5) Major depression, single episode: Status: Acute Qualifiers: Active/Remission status: currently active Major depression episode severity: severe Psychotic features: without psychotic features Qualified Code(s): F32.2 - Major depressive disorder, single episode, severe without psychotic features (6) Anxiety: Status: Acute Additional A&P Information Is a 30-year-old mixed, female with a long history of trauma, PTSD anxiety and depression who presents without access to care due to difficulty getting into [facility] (2 some medication changes. 1. Continue current medication. Increase Prozac to 40 mg by mouth every morning, start Inderal 20 mg by mouth 3 times a day, continue Ativan 0.5 mg by mouth twice a day. 2. Continue every 15 minute checks for safety. 3. Encourage individual, group and milieu therapy. Involuntary Hold Information 96 Hour Hold: 96 Hour Involuntary Admission: No Attestations NPU Medical Necessity Statement*: Inpatient hospitalization is medically necessary and the clinically appropriate intervention at this time. We will monitor medications and make changes as indicated. She will be in the hospital for over 2 midnight. Likely length of stay 2-4 days. Coding Level of Care Code Acute Frame Hand for Robert Valerio Diagnoses Suicidal ideation R45.851 Post traumatic stress disorder (PTSD) F43.10 Chronic pancreatitis K86.1 Cannabinoid hyperemesis syndrome R11.2; F12.90 Major depression, single episode F32.2 Active/Remission status: currently active Major depression episode severity: severe Psychotic features: without psychotic features Anxiety F41.9
[2020-05-22] MEDS: LORazepam 0.5 mg Tablet PO (13:39)
[2020-05-22 14:00] VITALS: BP 92/57; PULSE 69; RESP 18; TEMP 37.1; O2SAT 98
[2020-05-22] MEDS: propranolol 20 mg Tablet PO ×2 (14:18→20:44)
[2020-05-22 20:35] VITALS: BP 85/50; PULSE 89; RESP 17; TEMP 37.5; O2SAT 96
[2020-05-22] MEDS: prazosin 1 mg Capsule 2 MG PO (20:44)
[2020-05-22] MEDS: trazodone 50 mg Tablet PO (20:45)
[2020-05-23] MEDS: LORazepam 0.5 mg Tablet PO (03:23)
[2020-05-23 06:00] VITALS: BP 98/58; PULSE 56; RESP 16; TEMP 37.6; O2SAT 95
[2020-05-23] MEDS: propranolol 20 mg Tablet PO (09:14)
[2020-05-23] MEDS: ARIPiprazole 2 mg Tablet PO (09:14)
[2020-05-23] MEDS: pantoprazole DR 40 mg Tablet PO (09:14)
[2020-05-23] MEDS: fluoxetine 20 mg Capsule 40 MG PO (09:14)
--- NOTE | 2020-05-23 12:25 | PM.NDC ---
Diagnoses at Discharge Discharge Diagnosis (1) Suicidal ideation: Status: Resolved (2) Post traumatic stress disorder (PTSD): Status: Acute (3) Chronic pancreatitis: Status: Acute (4) Cannabinoid hyperemesis syndrome: Status: Acute (5) Major depression, single episode: Status: Acute Qualifiers: Active/Remission status: currently active Major depression episode severity: severe Psychotic features: without psychotic features Qualified Code(s): F32.2 - Major depressive disorder, single episode, severe without psychotic features (6) Anxiety: Status: Acute Reason for Visit Reason for Visit: Psych Related Issues/Sent from [facility] Brief History: History of Present Illness Leah Chua is a 30 year old female who presented to the department with the following report: Chief Complaint: Psychiatric Symptoms Stated Complaint: Psych Related Issues/Sent from [facility] Time Seen by Provider: 05/21/20 15:42 History of Present Illness: HPI Narrative: 30-year-old female sent here from [facility]. She relates she has problems with PTSD she was placed on Valium she is at that was giving her stomach trouble and went to an ER and was put on Ativan. She states she still having dreams when she wakes up she wishes she would not wake up. She will not explicitly say she wishes to harm herself but alludes to that multiple times while I was talking to her. She denies doing anything with the intent of harming herself or anyone else. Patient states she has had problems with pancreatitis in the past has been having more abdominal pain lately which she states is due to her H. pylori and her pancreatitis. MD complaint: feels depressed Onset (ago): week(s) Duration: constant History of same: Yes Relieving factors: medication Exacerbating factors: none Context: new medication(s) Associated psychiatric symptoms: depression and suicidal ideation (Vaguely stated) Associated symptoms: Reports depression and suicidal ideation; Deny auditory hallucinations, visual hallucinations, delusions, homicidal ideation or racing thoughts Treatments prior to arrival: none Review of Systems Const: Denies: fever(s), chills, body aches, change in appetite, fatigue or malaise ENMT: Denies: throat pain, ear or mastoid pain, nasal discharge or nasal congestion Card: Denies: chest pain, edema, dyspnea on exertion or orthopnea Resp: Denies: dyspnea, productive cough or non-productive cough GI: Reports: abdominal pain and nausea; Denies: vomiting, hematemesis, coffee ground emesis, diarrhea, constipation, bloating, hematochezia or melena : Denies: flank pain, difficulty voiding, dysuria, urinary frequency or urinary urgency Skin/Breast: Denies: rash or pruritus Psych: Reports: depression and suicidal ideation; Denies: visual hallucinations, auditory hallucinations or homicidal ideation PFSH ED PFSH: Medical History Endometriosis Surgical History History of cholecystectomy History of hysterectomy History of tonsillectomy and adenoidectomy Female Reproductive History: Date of last menstrual period: 10/07/11 Physical Exam Const: COMMON NORMALS: no acute distress GENERAL APPEARANCE: cooperative and comfortable ORIENTATION/CONSCIOUSNESS: Yes awake, Yes oriented to person, Yes oriented to place and Yes oriented to time HENMT: COMMON NORMALS: normocephalic, atraumatic and hearing grossly normal bilaterally HEAD & SCALP: normocephalic and atraumatic Neck/C-Spine: COMMON NORMALS: no JVD Resp: COMMON NORMALS: normal respiratory effort, No retractions, No use of accessory muscles and clear to auscultation bilaterally AUSCULTATION: clear to auscultation bilaterally Cardio: COMMON NORMALS: no JVD, regular rate, regular rhythm and No murmurs present (Cardio) RATE: regular rate RHYTHM: regular rhythm GI: COMMON NORMALS: Soft to palpation and No hepatosplenomegaly present AUSCULTATION: Yes normoactive bowel sounds PALPATION: Yes Soft to palpation, No Tenderness to palpation present (GI), No Guarding due to palpation present (GI) and Yes No hepatosplenomegaly present Extremity: COMMON NORMALS: normal to inspection, capillary refill normal, no clubbing, cyanosis or edema, no calf tenderness and no pedal edema Neuro: SENSORIUM/ORIENTATION: Yes oriented to person, Yes oriented to place and Yes oriented to time Psych: THOUGHT CONTENT: No delusions Skin: COMMON NORMALS: no rashes or lesions noted GENERAL SKIN EXAM: no rashes or lesions noted MDM - Psych MDM Narrative: Medical decision making narrative: She is still very noncommittal when I asked her about suicidal ideation she falls back to complaining that when she wakes up she wishes she was not who she was, wishes she was out of her skin or with someone else. She still denies having done anything but will not rule out or say specifically that she will not harm herself. Discussed with Dr. Shah given this response I think probably best to go ahead and admit her to the NPU to evaluate where she is at with her PTSD anxiety and some of these vague suicidal ideations. He agrees. She does have a fair amount of fluid in her stomach as well as some fluid-filled loops of bowel but there is no sign of bowel obstruction I suspect she may have chronic cannabinoid syndrome discussed this with her as well. She is admitted to the neuropsychiatric unit for definitive treatment of those issues. This morning she reports that she has really been struggling and has not been able to get into [facility]. She had been put on Valium that was switched to Ativan but she was not given a significant prescription and so therefore would not be able to get to the [facility] appointment. She says that the 0.5 mg twice a day was helpful. She reports that since he hasn't had the medication as much she has had worsening of her PTSD symptoms and her depression. We discussed the risks, benefits and alternatives of increasing her Prozac and adding Inderal and she understood and agreed to proceed as is documented in this note. We reviewed her 05/02/2020 inpatient eval and she agreed it was a accurate representation of her situation save her no longer working at [employer] secondary to struggle with anxiety. An excerpt of that note is included below. Per her 05/03/2020 [facility] inpatient eval: History of Present Illness Leah Chua is a 30-year-old woman who has self admitted herself to the psychiatric unit to prevent impulsive self-injurious behavior. She has been laboring under considerable psychoemotional stress and has been having suicidal thoughts but without intent or plan. Her performance at work has declined to such a degree that she may lose her employment. She describes herself as having anxiety all the time. However what she describes is someone with severe clinical depression. She has anhedonia, feelings of hopelessness and worthlessness, irritability, severe insomnia, poor concentration, and suicidal ideation. She has never had an intent or plan. She denies the presence of auditory or visual hallucinations. Her urine drug screen is positive for marijuana and benzodiazepines. However she is free of alcohol and other illegal substances. She desires help with her symptoms so that she can return to her employment and taking care of her 8-year-old son. Past psychiatric history: The patient describes herself as having multiple medication trials since for starting a Vistaril at age 17. She says the Vistaril has persistently given her for anxiety but it does not help very much. She has been helped the most by combination of Prozac and Valium. She stopped taking it 4 years ago because she wanted to try and maintain her life without medications. She is also taking trazodone and Abilify and multiple depression pills. Abilify was not tolerated. She says that gabapentin caused seizures but that was while she was in rehab for methamphetamine. She has been in rehab 1 time 5 years ago to resolve a problem with methamphetamine dependence. 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 She was not confronted about her marijuana use. Family psychiatric history is positive for multiple diagnoses in a variety of numbers. She has a uncle and several cousins diagnosed with schizophrenia. Many of her family have been diagnosed either with anxiety or bipolar disorder I Hospital Course Hospital Course Leah presented to the emergency department endorsing significant anxiety and feeling like she could not contract for safety reporting that she was very overwhelmed. She was admitted to the neuropsychiatric unit for definitive treatment of those issues. She was open to a trial of propranolol with an ultimate goal of discontinuing the Ativan. She slowly acclimated to the individual, group and milieu therapies provided. She was ultimately able to contract for safety and had a modest improvement during her stay. She is a voluntary patient and she was allowed to discharge as she desired. During the hospitalization she had routine laboratory studies which were within normal limits. Additionally she had a general medical evaluation which was also within normal limits and revealed no new acute processes. Discharge Summary: At the time of discharge, she denied lethality and was absent psychosis. Her mood and anxiety were well managed. She reported a plan to avoid all drugs of abuse and follow-up with the aftercare recommendations of the treatment team. She was evaluated and deemed to be absent credible lethality, and had achieved a maximum benefit from an inpatient hospitalization so she was discharged. Involuntary Hold Information 96 Hour Hold: 96 Hour Involuntary Admission: No Mental Status Exam MSE Comments: This is a well-nourished well-developed mixed female with hospital scrubs on with appropriate grooming and limited eye contact. No abnormal movements except for mild psychomotor agitation. Cooperative with exam in mild to moderate distress. Speech was normal rate decreased volume. Mood described as depressed and anxious, affect congruent. Thought process organized. Thought content: Patient endorsed passive wish but no acute suicidal or homicidal ideation, there were no delusions reported noted, she denied any auditory or visual hallucinations. Attention and concentration were intact and memory was reliable but none more formally tested. She is alert and oriented ?3. Insight and judgment were fair. Discharge Data Data Completed and Pending: Completed Studies During Hospitalization Category Date Time Status CT abdomen pelvis w con* [id number] Stat Cat Scan 05/21/20 17:02 Completed Vitals: Last Vital Signs Temp 99.7 F H 05/23/20 06:00 Pulse 56 L 05/23/20 06:00 Resp 16 05/23/20 06:00 BP 98/58 05/23/20 06:00 Pulse Ox 95 05/23/20 06:00 Discharge Plan Discharge Patient Disposition: Home Condition: Stable Prescriptions: New lorazepam 0.5 mg Tablet 0.5 mg PO BID PRN (Reason: Anxiety) 30 Days Qty: 60 RF: 1 propranolol 20 mg Tablet 20 mg PO TID 30 Days Qty: 90 RF: 1 Continued zplhnbqkg-XGS-VJ-acetaminophen 7.5-60-30-1,000 mg/30 mL Liquid 30 ml PO QID PRN (Reason: cough/cold symptoms) RF: 0 ondansetron HCl [Zofran] 4 mg tablet 4 mg PO Q8H PRN (Reason: nausea and vomiting) Qty: 30 RF: 0 pantoprazole 40 mg tablet,delayed release (DR/EC) 40 mg PO DAILY@0800 RF: 0 aripiprazole 2 mg tablet 2 mg PO DAILY@0800 RF: 0 trazodone 50 mg Tablet 50 mg PO BEDTIME PRN (Reason: Insomnia) 30 Days Qty: 30 RF: 1 Discontinued prazosin 1 mg capsule 1 mg PO BEDTIME@2100 RF: 0 fluoxetine 20 mg capsule 20 mg PO DAILY@0800 RF: 0 Discharge Orders: Discharge Order (Routine); Ordered 05/23/20 Ordered By: Kevon Shah Referrals: [facility] [Outside] (Since you completed the initial paperwork while in the hospital you will be contacted by [facility] for an appointment.) Dora Jefferson FNP-Giana [Primary Care Provider] - Discharge Diet: Regular Discharge Activity: Resume usual activity Discharge Attestations NPU Time Spent in Discharge Care*: less than 30 min Specific Discharge Activities: Specific discharge activities: educating patient, discussing with disease case manager/social workers/dc planners, documenting/other paperwork and evaluating patient/reviewing data Coding Level of Care Code 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
[2020-05-23 13:26] VITALS: BP 98/58; PULSE 56; RESP 16; TEMP 37.6; O2SAT 95
== END 2020-05-23 13:33 | disposition home or self-care (01) | DRG 885 ==
LOC: ER 18:06 → NP 18:14
PROVIDERS: Admitting Provider Psychiatry & Neurology Psychiatry; Emergency Provider Family Medicine; PCP Nurse Practitioner Family; Visit Provider Psychiatry & Neurology Psychiatry
DX: F32.2 Major depressive disorder, single episode, severe without psychotic features (principal); R45.851 Suicidal ideations; K86.1 Other chronic pancreatitis; F41.9 Anxiety disorder, unspecified; F43.11 Post-traumatic stress disorder, acute; R11.10 Vomiting, unspecified; F12.10 Cannabis abuse, uncomplicated
CPT/HCPCS: 12345; 74177; 80053; 80306; 80307; 81003; 81025; 83690; 85025; 96375; 99284; J2405; J7030; Q9967

== ENCOUNTER 2020-06-11 10:44 | Emergency (ER) | payer MEDICAID, SELFPAY ==
[2020-06-11 10:46] VITALS: BP 117/88; PULSE 79; RESP 16; TEMP 37.4; O2SAT 100; BMI 21.9
--- NOTE | 2020-06-11 10:53 | W.ED.ABDPA2 ---
HPI - Abdominal Pain General: Chief Complaint: Abdominal Pain Stated Complaint: ABD PAIN, N/V, DIARRHEA Time Seen by Provider: 06/11/20 10:52 Source: patient Mode of arrival: ambulatory Limitations: no limitations History of Present Illness: HPI narrative: Patient is a 30-year-old female who presents to ED today with a complaint of abdominal pain that began around 3 AM. Patient tells me she has had intermittent abdominal pains over the past 5 years but states she has not had an episode over the past 2 months. She tells me she is scheduled with Dr. Palma on June 25 to have an endoscopy performed as well as a pancreatic biopsy. Patient has been seen in our facility for similar symptoms. She states she had a few episodes of diarrhea this morning. She also had one episode of vomit that she describes as yellow in color with black speckles . Patient has not been running fevers. MD elicited complaint: abdominal pain Associated Symptoms: Reports diarrhea, nausea and vomiting; Denies chills, dysuria and fever(s) Related Data: Date of Last Menstrual Period: 10/07/11 Review of Systems Const: Denies: fever(s), chills, body aches, fatigue or malaise Card: Denies: chest pain Resp: Denies: dyspnea GI: Reports: abdominal pain, nausea, vomiting and diarrhea : Denies: flank pain, difficulty voiding, dysuria, urinary frequency, urinary urgency, urinary hesitancy, vaginal odor, vaginal bleeding or vaginal discharge Musc: Denies: neck pain or back pain Skin/Breast: Denies: rash Neuro: Denies: headache(s) PFS ED PFSH: Medical History Endometriosis Surgical History History of cholecystectomy History of hysterectomy History of tonsillectomy and adenoidectomy Social History (Updated 06/11/20 @ 10:55 by Ti Anna RN) Smoking and tobacco status: former smoker Alcohol intake: former Substance/Drug Use: current Substance/Drug use frequency: Special occassions/opportunity only Substance/Drug use type: Marijuana Adopted: No Marital status: Single Number of children: 1 service: No History of recent travel: No Current gender identity: Female Female Reproductive History: Date of last menstrual period: 10/07/11 Physical Exam Const: COMMON NORMALS: average body habitus, patient oriented x3, no limitations, healthy appearing, alert and well nourished GENERAL APPEARANCE: cooperative and in distress (mildly in pain) HENMT: COMMON NORMALS: normocephalic and atraumatic HEAD & SCALP: normocephalic and atraumatic Resp: COMMON NORMALS: normal respiratory effort and clear to auscultation bilaterally AUSCULTATION: clear to auscultation bilaterally Cardio: COMMON NORMALS: regular rate and regular rhythm RATE: regular rate RHYTHM: regular rhythm GI: COMMON NORMALS: Normal to inspection, nondistended, normoactive bowel sounds present, Soft to palpation, No hepatosplenomegaly present and no masses INSPECTION: Yes normal to inspection AUSCULTATION: Yes normoactive bowel sounds PALPATION: Yes Soft to palpation, Yes Tenderness to palpation present (GI) (epigastric, LUQ) and Yes No hepatosplenomegaly present : COMMON NORMALS: Yes no CVA tenderness BLADDER/KIDNEY EXAM: Yes no CVA tenderness Back/Pelvis: COMMON NORMALS: no CVA tenderness Extremity: COMMON NORMALS: normal to inspection GENERAL: Yes normal exam except as noted Neuro: COMMON NORMALS: patient oriented x3 SENSORIUM/ORIENTATION: Yes alert Skin: COMMON NORMALS: no rashes or lesions noted GENERAL SKIN EXAM: no rashes or lesions noted Course Vital Signs: Vital signs: Vital Signs Temperature 99.3 F 06/11/20 10:46 Pulse Rate 73 06/11/20 11:32 Respiratory Rate 14 06/11/20 11:32 Blood Pressure 102/72 06/11/20 11:32 Pulse Oximetry 99 06/11/20 11:32 MDM - Abdominal Pain MDM Narrative: Medical decision making narrative: Patient's labs here are non-concerning. She has not had any episode of vomiting or diarrhea while here. She had mild inflammation around her pancreas on CT scan however she has a normal lipase. Patient was given fluids, IV nausea/pain medications while here. She is stable for discharge. We will treat her pain and nausea at home and recommend she continue following up with Dr. Palma as scheduled. Lab Data: Labs: Lab Results 06/11/20 06/11/20 06/11/20 Range/Units 11:33 11:33 11:33 WBC 5.3 (4.0-10.0) 10^3/ uL RBC 3.63 L (4.1-5.3) 10^6/u L Hgb 11.5 (11.5-15.3) g/dL Hct 34.9 L (37.0-47.0) % MCV 96.1 (81-99) fL MCH 31.7 (28.0-34.0) pg MCHC 33.0 (30.0-36.0) g/dL RDW 12.3 (12.1-15.1) % Plt Count 179 (130-400) 10^3/c mm MPV 10.3 (7.4-10.4) fL Neut % (Auto) 53.4 % Lymph % (Auto) 36.8 % [place] % (Auto) 6.2 % Eos % (Auto) 2.8 % Baso % (Auto) 0.8 % Neut # (Auto) 2.83 (1.8-7.7) 10^3/u L Lymph # (Auto) 2.0 (0.8-4.8) 10^3/u L [place] # (Auto) 0.3 (0.2-0.9) 10^3/u L Eos # (Auto) 0.2 (0.0-0.8) 10^3/u L Baso # (Auto) 0.0 (0.0-0.1) 10^3/u L Nucleated RBC % (a uto) 0 % Nucleated RBCs # 0.0 /100WBC Sodium 142 (136-145) mmol/L Potassium 4.8 (3.5-5.1) mmol/L Chloride 108 H (98-107) mmol/L Carbon Dioxide 24 (22-29) mmol/L Anion Gap 14.8 (5-19) BUN 12 (6-20) mg/dL Creatinine 0.6 (0.5-0.9) mg/dL GFR Calculation 118.2 (90-130) mL/min Glucose 94 (65-115) mg/dL Calculated Osmolal ity 294 (285-295) mOsm/k g Calcium 9.2 (8.5-10.5) mg/dL Total Bilirubin 0.3 (0.15-1.2) mg/dL AST 9 (0-32) U/L ALT 8 (0-33) U/L Alkaline Phosphata se 89 (35-105) IU/L Total Protein 6.5 L (6.6-8.7) g/dL Albumin 3.9 (3.5-5.2) g/dL Globulin 2.6 (1.3-4.6) g/dL Lipase 58 (13-60) U/L HCG, Qual Negative (Negative) Urine Color (Yellow) Urine Appearance (CLEAR) Urine pH (5-7) Ur Specific Gravit y (1.005-1.030) Urine Protein (Negative) Urine Glucose (UA) (Normal) Urine Ketones (Negative) Urine Blood (Negative) Urine Nitrate (Negative) Urine Bilirubin (Negative) Urine Urobilinogen (Negative) mg/dL Ur Leukocyte Nevaeh ase (Negative) 06/11/20 Range/Units 11:33 WBC (4.0-10.0) 10^3/ uL RBC (4.1-5.3) 10^6/u L Hgb (11.5-15.3) g/dL Hct (37.0-47.0) % MCV (81-99) fL MCH (28.0-34.0) pg MCHC (30.0-36.0) g/dL RDW (12.1-15.1) % Plt Count (130-400) 10^3/c mm MPV (7.4-10.4) fL Neut % (Auto) % Lymph % (Auto) % [place] % (Auto) % Eos % (Auto) % Baso % (Auto) % Neut # (Auto) (1.8-7.7) 10^3/u L Lymph # (Auto) (0.8-4.8) 10^3/u L [place] # (Auto) (0.2-0.9) 10^3/u L Eos # (Auto) (0.0-0.8) 10^3/u L Baso # (Auto) (0.0-0.1) 10^3/u L Nucleated RBC % (a uto) % Nucleated RBCs # /100WBC Sodium (136-145) mmol/L Potassium (3.5-5.1) mmol/L Chloride (98-107) mmol/L Carbon Dioxide (22-29) mmol/L Anion Gap (5-19) BUN (6-20) mg/dL Creatinine (0.5-0.9) mg/dL GFR Calculation (90-130) mL/min Glucose (65-115) mg/dL Calculated Osmolal ity (285-295) mOsm/k g Calcium (8.5-10.5) mg/dL Total Bilirubin (0.15-1.2) mg/dL AST (0-32) U/L ALT (0-33) U/L Alkaline Phosphata se (35-105) IU/L Total Protein (6.6-8.7) g/dL Albumin (3.5-5.2) g/dL Globulin (1.3-4.6) g/dL Lipase (13-60) U/L HCG, Qual (Negative) Urine Color Yellow (Yellow) Urine Appearance Clear (CLEAR) Urine pH 7 (5-7) Ur Specific Gravit y 1.010 (1.005-1.030) Urine Protein Neg (Negative) Urine Glucose (UA) Norm (Normal) Urine Ketones Negative (Negative) Urine Blood Neg (Negative) Urine Nitrate Negative (Negative) Urine Bilirubin Neg (Negative) Urine Urobilinogen Norm (Negative) mg/dL Ur Leukocyte Nevaeh ase Negative (Negative) Imaging Data ^: CT Abd/Pel: Radiologist's impression: [address] [address] [address] Scan Report Signed Patient: Leah Chua #: [id number] : 1990Acct#:[id number] Age/Sex: 30 / FADM Date: 06/11/20 [facility]Bed: Attending Dr: Ordering Provider/Ordering MD: Casandra Charles Date of Service: 06/11/20 Procedure(s): CT abdomen pelvis w con* [id number] Accession Number(s): [id number] Report Number: [id number] WS: [id number] CT ABDOMEN AND PELVIS WITH CONTRAST HISTORY: upper abdominal pain, N/V/D TECHNIQUE: Imaging performed of the abdomen and pelvis with IV contrast. Single phase imaging of the abdomen. Coronal and sagittal reformats are submitted. All CT scans at [facility] use at least one of these dose optimization techniques: automated exposure control; mA and/or kV adjustment per patient size (includes targeted exams where dose is matched to clinical indication); or iterative reconstruction. IV CONTRAST: Omnipaque 300; 95 mL IV. Oral contrast: No DLP: 243.14 mGy.cm COMPARISON: 05/21/2020 Lower thorax: Lung bases are clear. Heart is normal size. No hiatal hernia. Liver/biliary system: Normal size liver. There is mild central bile duct dilatation which is similar to the prior study may be on the basis of a cholecystectomy. Common bile duct is normal size at the pancreatic head. Gallbladder: Status post cholecystectomy. Pancreas: Pancreatic duct is top normal size. There is mild inflammation surrounding the pancreas. Spleen: Normal. Adrenal glands: Normal. Right kidney: Normal size RIGHT kidney. Nonobstructing 5 mm calcification in the central kidney. There are a few scattered hypodensities which are too small to characterize. Left kidney: Normal. Aorta: Normal. Lymphadenopathy: None. Free fluid: None. GI tract: The appendix is not definitely visualized. There is moderate constipation throughout a large portion of the colon. Descending colon is more collapsed. No wall thickening or evidence for colitis or diverticulitis. Abdominal wall: Unremarkable abdominal wall. No hernia. Pelvis: Prior hysterectomy. No free fluid or pelvic mass identified. Bones: Unremarkable. CT/CT abdomen pelvis w con* [id number] IMPRESSION: 1. Constipation involving the ascending and transverse colon. No obstructive pattern. 2. Prior cholecystectomy. Mild intrahepatic bile duct dilatation may be on the basis of the cholecystectomy. 3. Mild inflammatory changes surrounding the pancreas. Correlate for possible early changes of acute pancreatitis. Dictated By:Enedina Lopez DO Signed By:Enedina Lopez DOSigned Date/Time:06/11/20 1154 DD/ 1149 Discharge Plan Discharge Patient Disposition: Home Clinical Impression: Abdominal pain of unknown cause Condition: Stable Prescriptions: New hydrocodone-acetaminophen 5-325 mg tablet 1 tab PO Q6H PRN (Reason: pain) Qty: 10 RF: 0 Zofran 4 mg tablet 4 mg PO Q6H PRN (Reason: nausea and vomiting) Qty: 14 RF: 0 No Action dicyclomine 20 mg tablet 20 mg PO TID PRN (Reason: abdominal discomfort) Qty: 30 RF: 0 ndtrdyjsr-NCN-IH-acetaminophen 7.5-60-30-1,000 mg/30 mL Liquid 30 ml PO QID PRN (Reason: cough/cold symptoms) RF: 0 ondansetron HCl [Zofran] 4 mg tablet 4 mg PO Q8H PRN (Reason: nausea and vomiting) Qty: 30 RF: 0 pantoprazole 40 mg tablet,delayed release (DR/EC) 40 mg PO DAILY@0800 RF: 0 aripiprazole 2 mg tablet 2 mg PO DAILY@0800 RF: 0 lorazepam 0.5 mg Tablet 0.5 mg PO BID PRN (Reason: Anxiety) 30 Days Qty: 60 RF: 1 propranolol 20 mg Tablet 20 mg PO TID 30 Days Qty: 90 RF: 1 trazodone 50 mg Tablet 50 mg PO BEDTIME PRN (Reason: Insomnia) 30 Days Qty: 30 RF: 1 Discharge Orders: Discharge ED (Routine); Ordered 06/11/20 Ordered By: Casandra Charles Referrals: Dorinda Montes De Oca DO [Primary Care Provider] - Patient Instructions: Abdominal Pain (ED) Activity Restrictions/Additional Instructions: As discussed keep your appointment with Dr. Palma as scheduled. He may return to the emergency department for severe or worsening abdominal pain, repetitive episodes of vomiting or diarrhea, blood in your vomit or diarrhea, fevers of greater than 100.4, or any other concerns you may have. Coding Level of Care Code ED Fire Hydrant Mechanic for [facility] 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
[2020-06-11 10:56] VITALS: O2SAT 100
--- NOTE | 2020-06-11 11:16 | CT_ITS ---
WS: [id number] CT ABDOMEN AND PELVIS WITH CONTRAST HISTORY: upper abdominal pain, N/V/D TECHNIQUE: Imaging performed of the abdomen and pelvis with IV contrast. Single phase imaging of the abdomen. Coronal and sagittal reformats are submitted. All CT scans at [facility] use at least one of these dose optimization techniques: automated exposure control; mA and/or kV adjustment per patient size (includes targeted exams where dose is matched to clinical indication); or iterativ e reconstruction. IV CONTRAST: Omnipaque 300; 95 mL IV. Oral contrast: No DLP: 243.14 mGy.cm COMPARISON: 05/21/2020 Lower thorax: Lung bases are clear. Heart is normal size. No hiatal hernia. Liver/biliary system: Normal size liver. There is mild central bile duct dilatation which is similar to the prior study may be on the basis of a cholecystectomy. Common bile duct is normal size at the p ancreatic head. Gallbladder: Status post cholecystectomy. Pancreas: Pancreatic duct is top normal size. There is mild inflammation surrounding the pancreas. Spleen: Normal. Adrenal glands: Normal. Right kidney: Normal size RIGHT kidney. Nonobstructing 5 mm calcification in the central kidney. Ther e are a few scattered hypodensities which are too small to characterize. Left kidney: Normal. Aorta: Normal. Lymphadenopathy: None. Free fluid: None. GI tract: The appendix is not definitely visualized. There is moderate constipation throughout a larg e portion of the colon. Descending colon is more collapsed. No wall thickening or evidence for coliti s or diverticulitis. Abdominal wall: Unremarkable abdominal wall. No hernia. Pelvis: Prior hysterectomy. No free fluid or pelvic mass identified. Bones: Unremarkable. CT/CT abdomen pelvis w con* [id number] IMPRESSION: 1. Constipation involving the ascending and transverse colon. No obstructive p attern. 2. Prior cholecystectomy. Mild intrahepatic bile duct dilatation may be on the basis of the cholecystectomy. 3. Mild inflammatory changes surrounding the pancreas. Correlate for possible early changes of acute pancreatitis.
[2020-06-11] MEDS: morphine 4 mg/mL SDV 1 mL IVP (11:30)
[2020-06-11] MEDS: ondansetron 2 mg/ML SDV 2 mL 4 MG IVP (11:31)
[2020-06-11] MEDS: sodium chloride 0.9% 1,000 ML 999 ML IV (11:31)
[2020-06-11 11:32] VITALS: BP 102/72; PULSE 73; RESP 14; O2SAT 99
[2020-06-11 11:42] LABS: Add Urine Microscopic? NO
[2020-06-11] MEDS: iohexol 300 mg/mL 100 mL Btl IV (11:45)
[2020-06-11 11:46] LABS: Basophils % 0.8 %; Eosinophils # 0.2 10^3/uL (0.0-0.8); Eosinophils % 2.8 %; Hematocrit 34.9 % (37.0-47.0); Hemoglobin 11.5 g/dL (11.5-15.3); Lymphocytes % 36.8 %; Mean Corpuscular Hemoglobin 31.7 pg (28.0-34.0); Mean Corpuscular Volume 96.1 fL (81-99); Mean Platelet Volume 10.3 fL (7.4-10.4); Monocytes # 0.3 10^3/uL (0.2-0.9); Monocytes % 6.2 %; Neutrophils # 2.83 10^3/uL (1.8-7.7); Neutrophils % 53.4 %; Nucleated Red Blood Cells % 0 %; Platelet Count 179 10^3/cmm (130-400); Red Blood Count 3.63 10^6/uL (4.1-5.3); Red Cell Distribution Width 12.3 % (12.1-15.1); White Blood Count 5.3 10^3/uL (4.0-10.0)
[2020-06-11 11:59] LABS: Bilirubin Urine Neg (Negative); Blood Urine Neg (Negative); Glucose Urine UA Norm (Normal); Ketones Urine Negative (Negative); Leukocyte Esterase Urine Negative (Negative); Nitrate Urine Negative (Negative); Protein Urine Neg (Negative); Urine Appearance Clear (CLEAR); Urine Color Yellow (Yellow); Urobilinogen Urine Norm (Negative); pH Urine 7 (5-7)
[2020-06-11 12:06] LABS: Alanine Aminotransferase 8 U/L (0-33); Albumin Level 3.9 g/dL (3.5-5.2); Alkaline Phosphatase 89 IU/L (35-105); Anion Gap 14.8 (5-19); Aspartate Amino Transferase 9 U/L (0-32); Blood Urea Nitrogen 12 mg/dL (6-20); Calcium 9.2 mg/dL (8.5-10.5); Carbon Dioxide 24 mmol/L (22-29); Chloride 108 mmol/L (98-107); Globulin 2.6 g/dL (1.3-4.6); Glomerular Filtration Rate 118.2 mL/min (90-130); Glucose 94 mg/dL (65-115); Lipase 58 U/L (13-60); Osmolality Calculated 294 mOsm/kg (285-295); Potassium 4.8 mmol/L (3.5-5.1); Sodium 142 mmol/L (136-145); Total Bilirubin 0.3 mg/dL (0.15-1.2); Total Protein 6.5 g/dL (6.6-8.7)
[2020-06-11 12:08] LABS: HCG, Serum Qual Negative (Negative)
[2020-06-11 13:18] VITALS: BP 91/60; PULSE 63; RESP 14; O2SAT 97
== END 2020-06-11 13:18 | disposition home or self-care (01) ==
PROVIDERS: Emergency Provider Physician Assistant; PCP Family Medicine
DX: R10.9 Unspecified abdominal pain (principal); Z87.891 Personal history of nicotine dependence
CPT/HCPCS: 12345; 74177; 80053; 81003; 83690; 84703; 85025; 96361; 96374; 96375; 99283; J2270; J2405; J7030; Q9967

== ENCOUNTER → 2020-07-03 14:37 | Outpatient (BNVA) | payer MEDICAID, SELFPAY | PROVIDERS: PCP Family Medicine; Visit Provider Nurse Practitioner Psychiatric/Mental Health | DX: F43.10 Post-traumatic stress disorder, unspecified (principal); F41.1 Generalized anxiety disorder; F32.9 Major depressive disorder, single episode, unspecified; Z79.899 Other long term (current) drug therapy | CPT/HCPCS: 99214 ==

== ENCOUNTER → 2020-07-17 11:21 | Outpatient (BNVA) | payer MEDICAID, SELFPAY | PROVIDERS: PCP Family Medicine; Visit Provider Nurse Practitioner Psychiatric/Mental Health | DX: Z79.899 Other long term (current) drug therapy (principal) | CPT/HCPCS: 80307 ==

== ENCOUNTER → 2020-07-31 08:05 | Outpatient (BNVA) | payer MEDICAID, SELFPAY | PROVIDERS: PCP Family Medicine; Visit Provider Nurse Practitioner Psychiatric/Mental Health | DX: F43.10 Post-traumatic stress disorder, unspecified (principal); F41.1 Generalized anxiety disorder; F32.9 Major depressive disorder, single episode, unspecified | CPT/HCPCS: 99214 ==

== ENCOUNTER 2020-11-25 15:57 | Inpatient (IN) | payer MEDICAID, SELFPAY ==
[2020-11-25 16:05] VITALS: BP 116/82; PULSE 109; RESP 22; TEMP 36.9; O2SAT 94; BMI 21.7
--- NOTE | 2020-11-25 16:28 | W.ED.PSYCH ---
HPI - Psych General: Chief Complaint: Psychiatric Symptoms Stated Complaint: severe anxiety and panic Time Seen by Provider: 11/25/20 16:24 History of Present Illness: HPI Narrative: Patient states that she has been crying since Thursday and she did not understand why. She has been on Ativan 1 mg twice a day since March she said this not helping. Patient states now that she just underwent a wake up and deal with this anymore that she does not feel homicidal and she is not really suicidal but if she did not wake up she would be okay with that. She does have a son at home and that son has other people help take care of them presently MD complaint: suicidal ideation Onset (ago): day(s) Duration: constant and getting worse History of same: Yes Relieving factors: none Exacerbating factors: none Associated psychiatric symptoms: other (Generalized anxiety) Associated symptoms: Deny depression Treatments prior to arrival: none Review of Systems Const: Denies: fever(s), chills or body aches Eyes: Denies: change in vision or blurry vision ENMT: Denies: throat pain or nasal congestion Card: Denies: chest pain or dyspnea on exertion Resp: Denies: dyspnea, productive cough or non-productive cough GI: Denies: abdominal pain, nausea or vomiting Musc: Denies: extremity pain Skin/Breast: Denies: rash Neuro: Denies: headache(s) Psych: Reports: anxiety, sleeping less and hopelessness; Denies: depression Bam/Lymph: Denies: easy bruising PFSH ED PFSH: Medical History Endometriosis MARY (generalized anxiety disorder) Information retrieved and edited from behavior assessment report on 06/05/20:Patient says she doesn't sleep well; she was on trazodone and it was not really helpful, so she stopped taking it. Reports weight loss and decreased appetite. Denied feelings of sadness; sometimes feels hopeless because she is not sure what is going on with her emotions and sometimes feels numb. She was on Prozac in the neuropsychiatric unit, and says it worked for her mood symptoms; she says she does not know why she was taken off medication. Review of the EMR shows it was discontinued in one of her emergency department visits. She endorses symptoms of: Trouble thinking, concentrating, making decisions and remembering things, loss of interest in most normal activities, restlessness, has trouble with memory. She thinks about her past; says it never stops; she can be busy doing things and will have daily flashbacks. Per symptoms checklist; ?cry easily, sweating palms, fatigue, bad dreams, mind goes blank, difficulty concentrating, trouble making decisions, trouble remembering, thoughts hard to dismiss, trouble sleeping, easily annoyed and irritable, loss of sexual desire, nervous feeling, excessive worries and fears, excessive fears of crowds, no interests in things, feeling inferior, change in personality, work difficulties, thoughts of harming self, thoughts of harming others?. Major depressive disorder without psychotic features Information retrieved and edited from behavior assessment report on 06/05/20: Patient says she doesn't sleep well; she was on trazodone and it was not really helpful, so she stopped taking it. Reports weight loss and decreased appetite. Denied feelings of sadness; sometimes feels hopeless because she is not sure what is going on with her emotions and sometimes feels numb. She was on Prozac in the neuropsychiatric unit, and says it worked for her mood symptoms; she says she does not know why she was taken off medication. Review of the EMR shows it was discontinued in one of her emergency department visits. She endorses symptoms of: Trouble thinking, concentrating, making decisions and remembering things, loss of interest in most normal activities, restlessness, has trouble with memory. She thinks about her past; says it never stops; she can be busy doing things and will have daily flashbacks. Per symptoms checklist; ?cry easily, sweating palms, fatigue, bad dreams, mind goes blank, difficulty concentrating, trouble making decisions, trouble remembering, thoughts hard to dismiss, trouble sleeping, easily annoyed and irritable, loss of sexual desire, nervous feeling, excessive worries and fears, excessive fears of crowds, no interests in things, feeling inferior, change in personality, work difficulties, thoughts of harming self, thoughts of harming others?. Surgical History History of cholecystectomy History of hysterectomy History of tonsillectomy and adenoidectomy Social History Smoking and tobacco status: current some day smoker cigarettes [ Other cigarette details: smoke more due anxiety ] Quit status (tobacco): considering quitting Second hand smoke exposure: Yes Alcohol intake: former Adopted: No Marital status: Single Number of children: 1 service: No History of recent travel: No Current gender identity: Female Female Reproductive History: Date of last menstrual period: 10/07/11 Physical Exam Const: COMMON NORMALS: no acute distress, average body habitus and patient oriented x3 HENMT: COMMON NORMALS: normocephalic HEAD & SCALP: normal to inspection and normocephalic FACE & SINUS: normal facial exam Eye: COMMON NORMALS: conjunctivae normal GENERAL EYE: appearance normal, both eyes and all related structures CONJUNCTIVA: Yes conjunctivae normal Neck/C-Spine: COMMON NORMALS: no JVD Chest: COMMONS NORMALS: normal inspection of the chest Resp: COMMON NORMALS: normal respiratory effort and clear to auscultation bilaterally AUSCULTATION: clear to auscultation bilaterally Cardio: COMMON NORMALS: no JVD, regular rate and regular rhythm RATE: regular rate RHYTHM: regular rhythm GI: COMMON NORMALS: Normal to inspection, nondistended, normoactive bowel sounds present Extremity: COMMON NORMALS: normal to inspection and full ROM Neuro: COMMON NORMALS: patient oriented x3 Psych: COMMON NORMALS: Normal thought process present and cooperative APPEARANCE: Yes grossly normal ATTITUDE: Yes Other attitude/behavior findings present (Psych) (Crying) ACTIVITY/MOTOR BEHAVIOR: Yes appropriate eye contact MOOD & AFFECT: Yes anxious and Yes tearful THOUGHT PROCESS: Normal thought process present THOUGHT CONTENT: Yes Normal thought content present Course Vital Signs: Vital signs: Vital Signs Temperature 98.4 F 11/25/20 16:05 Pulse Rate 109 H 11/25/20 16:05 Respiratory Rate 22 H 11/25/20 16:05 Blood Pressure 116/82 11/25/20 16:05 Pulse Oximetry 94 11/25/20 16:05 MDM - Psych MDM Narrative: Medical decision making narrative: I spoke with Dr. Shah agrees accept her as admission Discharge Plan Discharge Patient Disposition: Admitted As Inpatient Clinical Impression: Anxiety Condition: Stable Coding Level of Care Code ED Supervisor Underwriting Clerks for Chg 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
[2020-11-25] MEDS: LORazepam 2 mg Tablet PO (16:50)
[2020-11-25 17:06] LABS: Basophils % 0.5 %; Eosinophils # 0.1 10^3/uL (0.0-0.8); Eosinophils % 1.1 %; Hematocrit 38.5 % (37.0-47.0); Hemoglobin 13.2 g/dL (11.5-15.3); Lymphocytes # 1.8 10^3/uL (0.8-4.8); Lymphocytes % 31.6 %; Mean Corpuscular HGB Conc 34.3 g/dL (30.0-36.0); Mean Corpuscular Volume 93.4 fL (81-99); Mean Platelet Volume 10.3 fL (7.4-10.4); Monocytes # 0.5 10^3/uL (0.2-0.9); Monocytes % 8.3 %; Neutrophils # 3.29 10^3/uL (1.8-7.7); Neutrophils % 58.5 %; Nucleated Red Blood Cells % 0 %; Platelet Count 216 10^3/cmm (130-400); Red Blood Count 4.12 10^6/uL (4.1-5.3); Red Cell Distribution Width 11.9 % (12.1-15.1); White Blood Count 5.6 10^3/uL (4.0-10.0)
[2020-11-25 17:09] LABS: Add Urine Microscopic? NO; Charge for UA Resulting for Rev
[2020-11-25 17:12] LABS: Bilirubin Urine Neg (Negative); Blood Urine Neg (Negative); Glucose Urine UA Norm (Normal); Ketones Urine Negative (Negative); Leukocyte Esterase Urine Negative (Negative); Nitrate Urine Negative (Negative); Protein Urine Neg (Negative); Specific Gravity, Urine 1.005 (1.005-1.030); Urine Appearance Clear (CLEAR); Urine Color Yellow (Yellow); Urobilinogen Urine Norm (Negative); pH Urine 7 (5-7)
[2020-11-25 17:14] VITALS: RESP 22; TEMP 36.9
[2020-11-25 17:30] LABS: Acetaminophen < 5.0 ug/mL (10-30); Alanine Aminotransferase 8 U/L (0-33); Albumin Level 4.3 g/dL (3.5-5.2); Alkaline Phosphatase 92 IU/L (35-105); Anion Gap 16.1 (5-19); Aspartate Amino Transferase 8 U/L (0-32); Blood Urea Nitrogen 9 mg/dL (6-20); Calcium 9.4 mg/dL (8.5-10.5); Carbon Dioxide 22 mmol/L (22-29); Chloride 105 mmol/L (98-107); Glomerular Filtration Rate 98.9 mL/min (90-130); Glucose 94 mg/dL (65-115); Osmolality Calculated 286 mOsm/kg (285-295); Potassium 4.1 mmol/L (3.5-5.1); Salicylate 0.8 mg/dL (3-10); Sodium 139 mmol/L (136-145); Total Bilirubin 0.5 mg/dL (0.15-1.2); Total Protein 7.3 g/dL (6.6-8.7)
[2020-11-25 17:31] LABS: Amphetamines Screen Urine Negative (Negative); Barbiturates Screen Urine Negative (Negative); Benzodiazepines Screen Urine Positive (Negative); Cocaine Screen Urine Negative (Negative); Opiate Screen Urine Negative (Negative); PCP Screen Urine Negative (Negative); THC Screen Urine Positive (Negative)
[2020-11-25] MEDS: OLANZapine 5 mg ODT PO (17:34)
--- NOTE | 2020-11-25 17:34 | PC.NURSE ---
PRN IRAM Patient very distraught on admit. Requested medication to help her stop crying. Stated she has been crying since Thursday. Given 5 mg Zyprexa Zydis PO.
--- NOTE | 2020-11-25 19:35 | PC.NURSE ---
Soon after the night staff arrived to the nurse's station the patient approached and said, the other nurse (day) said I could have a shot. Reviewed with the patient, the day RN had reported she was given IM med at 1730 and she had been told she could not have additional medication. The patient then said a RN PRACTITIONER had sais she could have additional medication. I did patient teaching regarding a RN PRACTITIONER is not licensed to make decisions about medications. The patient began crying and said, I am tired of crying. I have been crying for days. I need something to knock me out. Then went to her room and slammed the door. Reviewed her med profile along with other night [employer] OPERATOR. Met with patient and offered Haldol 5 mg po and Vistaril 50 mg at this time. The patient was agreeable to taking the meds offered.
[2020-11-25] MEDS: LORazepam 1 mg Tablet PO (20:25)
[2020-11-25] MEDS: hyDROXYzine 25 mg Capsule 50 MG PO (20:32)
[2020-11-25] MEDS: haloperidol 5 mg Tablet PO (20:33)
[2020-11-25 21:00] VITALS: BP 106/74; PULSE 103; RESP 24; TEMP 36.9; O2SAT 97
[2020-11-25 22:00] VITALS: BP 106/74; PULSE 74; RESP 24; TEMP 36.9; O2SAT 97
[2020-11-26 06:00] VITALS: BP 97/55; PULSE 56; RESP 16; TEMP 36.8; O2SAT 16
[2020-11-26] MEDS: hyDROXYzine 25 mg Capsule 50 MG PO (07:44)
--- NOTE | 2020-11-26 07:44 | PC.NURSE ---
Addendum entered by Herbert Saha RN 11/26/20 09:25: PRN Follow-up Patient is resting in bed with eyes closed. No S/S of distress. Nurse will continue to monitor. Original Note: Administered Vistaril 50mg PO for patient C/O of increasing anxiety. Nurse will continue to monitor.
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
[2020-11-26] MEDS: escitalopram 10 mg Tablet PO (12:13)
[2020-11-26] MEDS: LORazepam 1 mg Tablet PO (13:19)
[2020-11-26 14:00] VITALS: BP 104/69; PULSE 91; RESP 14; TEMP 36.9; O2SAT 97
--- NOTE | 2020-11-26 15:35 | PC.RESP ---
SMOKING CESSATION INFORMATION SENT TO PATIENT.
--- NOTE | 2020-11-26 15:41 | PC.RESP ---
SMOKING CESSATION INFORMATION SENT TO PATIENT.
[2020-11-26] MEDS: ziprasidone hcl 20 mg Capsule PO (16:39)
[2020-11-26 20:12] VITALS: BP 122/88; PULSE 92; RESP 14; TEMP 37.1; O2SAT 98
[2020-11-26] MEDS: trazodone 50 mg Tablet PO (20:51)
[2020-11-27 06:00] VITALS: BP 103/66; PULSE 99; RESP 19; TEMP 37.1; O2SAT 98
[2020-11-27] MEDS: ziprasidone hcl 20 mg Capsule PO (06:40)
[2020-11-27] MEDS: escitalopram 10 mg Tablet PO (08:14)
[2020-11-27] MEDS: LORazepam 1 mg Tablet PO (09:24)
--- NOTE | 2020-11-27 09:25 | PC.NURSE ---
PRN ATIVAN 1 MG GIVEN PO PER PT REQUEST OF MY ATIVAN PT VERY MED SEEKING FOR THE ATIVAN
[2020-11-27 14:00] VITALS: BP 115/71; PULSE 114; RESP 18; TEMP 36.7; O2SAT 97
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
[2020-11-27 15:21] VITALS: BP 115/71; PULSE 114; RESP 18; TEMP 36.7; O2SAT 97
== END 2020-11-27 16:20 | disposition home or self-care (01) | DRG 885 ==
LOC: ER 16:39 → NP 17:05
PROVIDERS: Admitting Provider Psychiatry & Neurology Psychiatry; Emergency Provider Nurse Practitioner Family; PCP Family Medicine; Visit Provider Psychiatry & Neurology Psychiatry
DX: F32.2 Major depressive disorder, single episode, severe without psychotic features (principal); K86.1 Other chronic pancreatitis; R45.851 Suicidal ideations; F41.1 Generalized anxiety disorder; F17.210 Nicotine dependence, cigarettes, uncomplicated; F43.12 Post-traumatic stress disorder, chronic; F12.90 Cannabis use, unspecified, uncomplicated; R10.13 Epigastric pain
CPT/HCPCS: 80053; 80306; 80307; 81003; 85025; 99285

== ENCOUNTER → 2021-01-27 14:52 | Outpatient (BNVA) | payer MEDICAID, SELFPAY | PROVIDERS: PCP Family Medicine; Visit Provider Nurse Practitioner | DX: Z20.822 Contact with and (suspected) exposure to COVID-19 (principal) | CPT/HCPCS: 87635 ==

== ENCOUNTER 2021-05-15 11:28 | Emergency (ER) | payer MEDICAID, SELFPAY ==
[2021-05-15 11:44] VITALS: BP 101/67; PULSE 97; RESP 18; TEMP 36.9; O2SAT 99; BMI 23.6
--- NOTE | 2021-05-15 11:51 | W.ED.BACK ---
HPI - Back Pain/Injury General: Chief Complaint: Back Pain/Injury Stated Complaint: BACK PAIN Time Seen by Provider: 05/15/21 11:48 [facility] ED [facility]: Medical History Endometriosis MARY (generalized anxiety disorder) Information retrieved and edited from behavior assessment report on 06/05/20:Patient says she doesn't sleep well; she was on trazodone and it was not really helpful, so she stopped taking it. Reports weight loss and decreased appetite. Denied feelings of sadness; sometimes feels hopeless because she is not sure what is going on with her emotions and sometimes feels numb. She was on Prozac in the neuropsychiatric unit, and says it worked for her mood symptoms; she says she does not know why she was taken off medication. Review of the EMR shows it was discontinued in one of her emergency department visits. She endorses symptoms of: Trouble thinking, concentrating, making decisions and remembering things, loss of interest in most normal activities, restlessness, has trouble with memory. She thinks about her past; says it never stops; she can be busy doing things and will have daily flashbacks. Per symptoms checklist; ?cry easily, sweating palms, fatigue, bad dreams, mind goes blank, difficulty concentrating, trouble making decisions, trouble remembering, thoughts hard to dismiss, trouble sleeping, easily annoyed and irritable, loss of sexual desire, nervous feeling, excessive worries and fears, excessive fears of crowds, no interests in things, feeling inferior, change in personality, work difficulties, thoughts of harming self, thoughts of harming others?. Major depressive disorder without psychotic features Information retrieved and edited from behavior assessment report on 06/05/20: Patient says she doesn't sleep well; she was on trazodone and it was not really helpful, so she stopped taking it. Reports weight loss and decreased appetite. Denied feelings of sadness; sometimes feels hopeless because she is not sure what is going on with her emotions and sometimes feels numb. She was on Prozac in the neuropsychiatric unit, and says it worked for her mood symptoms; she says she does not know why she was taken off medication. Review of the EMR shows it was discontinued in one of her emergency department visits. She endorses symptoms of: Trouble thinking, concentrating, making decisions and remembering things, loss of interest in most normal activities, restlessness, has trouble with memory. She thinks about her past; says it never stops; she can be busy doing things and will have daily flashbacks. Per symptoms checklist; ?cry easily, sweating palms, fatigue, bad dreams, mind goes blank, difficulty concentrating, trouble making decisions, trouble remembering, thoughts hard to dismiss, trouble sleeping, easily annoyed and irritable, loss of sexual desire, nervous feeling, excessive worries and fears, excessive fears of crowds, no interests in things, feeling inferior, change in personality, work difficulties, thoughts of harming self, thoughts of harming others?. Surgical History History of cholecystectomy History of hysterectomy History of tonsillectomy and adenoidectomy Social History Smoking and tobacco status: current some day smoker cigarettes [ Other cigarette details: smoke more due anxiety ] Quit status (tobacco): considering quitting Second hand smoke exposure: Yes Alcohol intake: former Adopted: No Marital status: Single Number of children: 1 service: No History of recent travel: No Current gender identity: Female Female Reproductive History: Date of last menstrual period: 10/07/11 Course Vital Signs: Vital signs: Vital Signs Temperature 98.4 F 05/15/21 11:44 Pulse Rate 97 05/15/21 11:44 Respiratory Rate 18 05/15/21 11:44 Blood Pressure 101/67 05/15/21 11:44 Pulse Oximetry 99 05/15/21 11:44 Discharge Plan Discharge Prescriptions: No Action trazodone 50 mg Tablet 50 mg PO BEDTIME PRN (Reason: Sleep) 30 Days Qty: 30 RF: 1 ziprasidone HCl 20 mg Capsule 20 mg PO 0700,1700 30 Days Qty: 60 RF: 1 hydroxyzine pamoate 25 mg Capsule 50 mg PO Q6H PRN (Reason: Anxiety) 30 Days Qty: 120 RF: 1 escitalopram oxalate 10 mg Tablet 10 mg PO DAILY 30 Days Qty: 30 RF: 1 lorazepam 0.5 mg tablet 1 mg PO BID PRN (Reason: anxiety) Qty: 90 RF: 0 Coding Level of Care Code ED [employer] for Robert Valerio
--- NOTE | 2021-05-15 11:57 | W.ED.FEMALGU ---
HPI - Female Genitourinary General: Chief complaint: Back Pain/Injury Stated complaint: BACK PAIN Time Seen by Provider: 05/15/21 11:48 History of Present Illness: Date of Last Menstrual Period: 10/07/11 [facility] ED PFS: Medical History Endometriosis MARY (generalized anxiety disorder) Information retrieved and edited from behavior assessment report on 06/05/20:Patient says she doesn't sleep well; she was on trazodone and it was not really helpful, so she stopped taking it. Reports weight loss and decreased appetite. Denied feelings of sadness; sometimes feels hopeless because she is not sure what is going on with her emotions and sometimes feels numb. She was on Prozac in the neuropsychiatric unit, and says it worked for her mood symptoms; she says she does not know why she was taken off medication. Review of the EMR shows it was discontinued in one of her emergency department visits. She endorses symptoms of: Trouble thinking, concentrating, making decisions and remembering things, loss of interest in most normal activities, restlessness, has trouble with memory. She thinks about her past; says it never stops; she can be busy doing things and will have daily flashbacks. Per symptoms checklist; ?cry easily, sweating palms, fatigue, bad dreams, mind goes blank, difficulty concentrating, trouble making decisions, trouble remembering, thoughts hard to dismiss, trouble sleeping, easily annoyed and irritable, loss of sexual desire, nervous feeling, excessive worries and fears, excessive fears of crowds, no interests in things, feeling inferior, change in personality, work difficulties, thoughts of harming self, thoughts of harming others?. Major depressive disorder without psychotic features Information retrieved and edited from behavior assessment report on 06/05/20: Patient says she doesn't sleep well; she was on trazodone and it was not really helpful, so she stopped taking it. Reports weight loss and decreased appetite. Denied feelings of sadness; sometimes feels hopeless because she is not sure what is going on with her emotions and sometimes feels numb. She was on Prozac in the neuropsychiatric unit, and says it worked for her mood symptoms; she says she does not know why she was taken off medication. Review of the EMR shows it was discontinued in one of her emergency department visits. She endorses symptoms of: Trouble thinking, concentrating, making decisions and remembering things, loss of interest in most normal activities, restlessness, has trouble with memory. She thinks about her past; says it never stops; she can be busy doing things and will have daily flashbacks. Per symptoms checklist; ?cry easily, sweating palms, fatigue, bad dreams, mind goes blank, difficulty concentrating, trouble making decisions, trouble remembering, thoughts hard to dismiss, trouble sleeping, easily annoyed and irritable, loss of sexual desire, nervous feeling, excessive worries and fears, excessive fears of crowds, no interests in things, feeling inferior, change in personality, work difficulties, thoughts of harming self, thoughts of harming others?. Surgical History History of cholecystectomy History of hysterectomy History of tonsillectomy and adenoidectomy Social History Smoking and tobacco status: current some day smoker cigarettes [ Other cigarette details: smoke more due anxiety ] Quit status (tobacco): considering quitting Second hand smoke exposure: Yes Alcohol intake: former Adopted: No Marital status: Single Number of children: 1 service: No History of recent travel: No Current gender identity: Female Female Reproductive History: Date of last menstrual period: 10/07/11 Course Vital Signs: Vital signs: Vital Signs Temperature 98.4 F 05/15/21 11:44 Pulse Rate 97 05/15/21 11:44 Respiratory Rate 18 05/15/21 11:44 Blood Pressure 101/67 05/15/21 11:44 Pulse Oximetry 99 05/15/21 11:44 Discharge Plan Discharge Prescriptions: No Action trazodone 50 mg Tablet 50 mg PO BEDTIME PRN (Reason: Sleep) 30 Days Qty: 30 RF: 1 ziprasidone HCl 20 mg Capsule 20 mg PO 0700,1700 30 Days Qty: 60 RF: 1 hydroxyzine pamoate 25 mg Capsule 50 mg PO Q6H PRN (Reason: Anxiety) 30 Days Qty: 120 RF: 1 escitalopram oxalate 10 mg Tablet 10 mg PO DAILY 30 Days Qty: 30 RF: 1 lorazepam 0.5 mg tablet 1 mg PO BID PRN (Reason: anxiety) Qty: 90 RF: 0 Coding Level of Care Code ED [employer] for Robert Valerio
[2021-05-15 12:17] LABS: Basophils % 0.5 %; Eosinophils # 0.2 10^3/uL (0.0-0.8); Eosinophils % 1.9 %; Hematocrit 39.3 % (37.0-47.0); Lymphocytes # 1.8 10^3/uL (0.8-4.8); Lymphocytes % 21.8 %; Mean Corpuscular HGB Conc 33.1 g/dL (30.0-36.0); Mean Corpuscular Hemoglobin 31.6 pg (28.0-34.0); Mean Corpuscular Volume 95.6 fl (81-99); Mean Platelet Volume 10.1 fL (7.4-10.4); Monocytes # 0.5 10^3/uL (0.2-0.9); Monocytes % 5.8 %; Neutrophils # 5.62 10^3/uL (1.8-7.7); Neutrophils % 69.8 %; Nucleated Red Blood Cells % 0 %; Platelet Count 205 10^3/cmm (130-400); Red Blood Count 4.11 10^6/uL (4.1-5.3); Red Cell Distribution Width 12.1 % (12.1-15.1); White Blood Count 8.1 10^3/uL (4.0-10.0)
[2021-05-15 12:35] VITALS: BP 103/68; PULSE 92; RESP 18; O2SAT 99
[2021-05-15 12:39] LABS: Add Urine Microscopic? NO; Bilirubin Urine Neg (Negative); Blood Urine Neg (Negative); Glucose Urine UA Norm (Normal); Ketones Urine Negative (Negative); Leukocyte Esterase Urine Negative (Negative); Nitrate Urine Negative (Negative); Protein Urine Neg (Negative); Specific Gravity, Urine 1.015 (1.005-1.030); Sulfosalicylic Acid Urine Negative (Negative); Urine Appearance Clear (CLEAR); Urine Color Straw (Yellow); Urobilinogen Urine Norm (Negative); pH Urine 8 (5-7)
[2021-05-15 12:40] LABS: Charge for UA Resulting for Rev
[2021-05-15 12:45] LABS: Alanine Aminotransferase 10 U/L (0-33); Alkaline Phosphatase 92 IU/L (35-105); Anion Gap 15.2 (5-19); Aspartate Amino Transferase 9 U/L (0-32); Blood Urea Nitrogen 8 mg/dL (6-20); Calcium 8.7 mg/dL (8.5-10.5); Carbon Dioxide 23 mmol/L (22-29); Chloride 102 mmol/L (98-107); Globulin 2.5 g/dL (1.3-4.6); Glomerular Filtration Rate 144.9 mL/min (90-130); Glucose 91 mg/dL (65-115); Osmolality Calculated 280 mOsm/kg (285-295); Potassium 4.2 mmol/L (3.5-5.1); Sodium 136 mmol/L (136-145); Total Bilirubin 0.2 mg/dL (0.15-1.2); Total Protein 6.5 g/dL (6.6-8.7)
--- NOTE | 2021-05-15 12:56 | W.ED.BACK ---
HPI - Back Pain/Injury General: Chief Complaint: Back Pain/Injury Stated Complaint: BACK PAIN Time Seen by Provider: 05/15/21 11:48 Source: patient Mode of arrival: ambulatory Limitations: no limitations History of Present Illness: HPI Narrative: Patient is a 31-year-old female presents to ED today with a complaint of lower back pain over the past several days. Patient tells me she has had pains like this previously but nothing to the severity. She initially thought pain was secondary to a kidney stone as she has had these previously as well. She does complain of some burning with urination as well as urinary frequency, hesitancy, and urine odor. Patient has not been running fevers. She has not had any nausea or vomiting. Patient states she lifts very heavy loads sometimes over 100 pounds for work and wonders if maybe she just sprained her back. She does state pain seems to radiate down into her left buttock and down her leg. She does not complain of any saddle anesthesia, urinary retention, or incontinence. MD elicited complaint: back pain Pertinent past history: prior back pain Onset (ago): day(s) Timing: constant Severity: severe Similar Symptoms Previously: Yes Location: lumbar spine, right lower back and left lower back Radiation: buttocks and left leg below the knee Exacerbating factors: movement, walking and lifting Relieving factors: none Associated symptoms: Reports chills, dysuria and urinary urgency; Deny abdominal pain, fatigue, fever(s), nausea or vomiting Review of Systems Const: Reports: chills; Denies: fever(s), body aches, fatigue or malaise Card: Denies: chest pain Resp: Denies: dyspnea GI: Denies: abdominal pain, nausea, vomiting or diarrhea : Reports: dysuria, urinary urgency and other (sp hysterectomy); Denies: flank pain, vaginal odor or vaginal bleeding Musc: Reports: back pain; Denies: neck pain, extremity pain or joint pain Skin/Breast: Denies: rash Neuro: Denies: headache(s), numbness in extremities, weakness in extremities, sensory changes or dizziness [facility] ED PFSH: Medical History Endometriosis MARY (generalized anxiety disorder) Information retrieved and edited from behavior assessment report on 06/05/20:Patient says she doesn't sleep well; she was on trazodone and it was not really helpful, so she stopped taking it. Reports weight loss and decreased appetite. Denied feelings of sadness; sometimes feels hopeless because she is not sure what is going on with her emotions and sometimes feels numb. She was on Prozac in the neuropsychiatric unit, and says it worked for her mood symptoms; she says she does not know why she was taken off medication. Review of the EMR shows it was discontinued in one of her emergency department visits. She endorses symptoms of: Trouble thinking, concentrating, making decisions and remembering things, loss of interest in most normal activities, restlessness, has trouble with memory. She thinks about her past; says it never stops; she can be busy doing things and will have daily flashbacks. Per symptoms checklist; ?cry easily, sweating palms, fatigue, bad dreams, mind goes blank, difficulty concentrating, trouble making decisions, trouble remembering, thoughts hard to dismiss, trouble sleeping, easily annoyed and irritable, loss of sexual desire, nervous feeling, excessive worries and fears, excessive fears of crowds, no interests in things, feeling inferior, change in personality, work difficulties, thoughts of harming self, thoughts of harming others?. Major depressive disorder without psychotic features Information retrieved and edited from behavior assessment report on 06/05/20: Patient says she doesn't sleep well; she was on trazodone and it was not really helpful, so she stopped taking it. Reports weight loss and decreased appetite. Denied feelings of sadness; sometimes feels hopeless because she is not sure what is going on with her emotions and sometimes feels numb. She was on Prozac in the neuropsychiatric unit, and says it worked for her mood symptoms; she says she does not know why she was taken off medication. Review of the EMR shows it was discontinued in one of her emergency department visits. She endorses symptoms of: Trouble thinking, concentrating, making decisions and remembering things, loss of interest in most normal activities, restlessness, has trouble with memory. She thinks about her past; says it never stops; she can be busy doing things and will have daily flashbacks. Per symptoms checklist; ?cry easily, sweating palms, fatigue, bad dreams, mind goes blank, difficulty concentrating, trouble making decisions, trouble remembering, thoughts hard to dismiss, trouble sleeping, easily annoyed and irritable, loss of sexual desire, nervous feeling, excessive worries and fears, excessive fears of crowds, no interests in things, feeling inferior, change in personality, work difficulties, thoughts of harming self, thoughts of harming others?. Surgical History History of cholecystectomy History of hysterectomy History of tonsillectomy and adenoidectomy Social History Smoking and tobacco status: current some day smoker cigarettes [ Other cigarette details: smoke more due anxiety ] Quit status (tobacco): considering quitting Second hand smoke exposure: Yes Alcohol intake: former Adopted: No Marital status: Single Number of children: 1 service: No History of recent travel: No Current gender identity: Female Female Reproductive History: Date of last menstrual period: 10/07/11 Physical Exam Const: COMMON NORMALS: no acute distress, average body habitus, patient oriented x3, no limitations, healthy appearing, alert and well nourished GENERAL APPEARANCE: cooperative HENMT: COMMON NORMALS: normocephalic and atraumatic HEAD & SCALP: normocephalic and atraumatic Resp: COMMON NORMALS: normal respiratory effort and clear to auscultation bilaterally AUSCULTATION: clear to auscultation bilaterally Cardio: COMMON NORMALS: regular rate and regular rhythm RATE: regular rate RHYTHM: regular rhythm GI: COMMON NORMALS: Normal to inspection, nondistended, normoactive bowel sounds present, Soft to palpation, non-tender, No hepatosplenomegaly present and no masses PALPATION: Yes Soft to palpation and Yes No hepatosplenomegaly present : COMMON NORMALS: Yes no CVA tenderness BLADDER/KIDNEY EXAM: Yes no CVA tenderness Back/Pelvis: COMMON NORMALS: no CVA tenderness THORACIC SPINE/UPPER BACK: Yes normal to inspection, Yes thoracic ROM normal and No thoracic spinal tenderness LUMBAR SPINE/LOWER BACK: Yes paraspinal muscle tenderness (across lower back) and No paraspinal muscle spasm PELVIS: Yes buttocks normal Extremity: COMMON NORMALS: normal to inspection and full ROM GENERAL: Yes normal exam except as noted Neuro: NÉSTOR COMA SCALE: document GCS findings Néstor coma scale eye opening: Spontaneous Néstor coma scale verbal response: Orientated Néstor coma scale motor response: [place] coma scale total score: 15 COMMON NORMALS: patient oriented x3 SENSORIUM/ORIENTATION: Yes alert Skin: COMMON NORMALS: no rashes or lesions noted GENERAL SKIN EXAM: no rashes or lesions noted Course Vital Signs: Vital signs: Vital Signs Temperature 98.4 F 05/15/21 11:44 Pulse Rate 98 05/15/21 13:39 Respiratory Rate 18 05/15/21 13:39 Blood Pressure 103/68 05/15/21 12:35 Pulse Oximetry 99 05/15/21 13:39 MDM - Back Pain/Injury MDM Narrative: Medical decision making narrative: Patient is a 31-year-old female here with lower back pains over the past few days. She did have some urinary complaints however her urine is completely clear here. Blood work is unremarkable. Her vital signs are stable. She is status post hysterectomy. Discussed CT imaging however patient states she does not want imaging at this time and wants to treat at home with prescription medications for probable musculoskeletal back strain. She verbalized she will return to the ED for any progressing symptoms. Return to ED precautions given in regards to worsening urinary symptoms, fevers, repetitive episodes of vomiting, etc. Lab Data: Labs: Lab Results 05/15/21 05/15/21 05/15/21 12:08 12:08 12:25 WBC 8.1 10^3/uL 10^3/ uL (4.0-10.0) RBC 4.11 10^6/uL 10^6 /uL (4.1-5.3) Hgb 13.0 g/dL g/dL (11.5-15.3) Hct 39.3 % % (37.0-47.0) MCV 95.6 fl fl (81-99) MCH 31.6 pg pg (28.0-34.0) MCHC 33.1 g/dL g/dL (30.0-36.0) RDW 12.1 % % (12.1-15.1) Plt Count 205 10^3/cmm 10^3 /cmm (130-400) MPV 10.1 fL fL (7.4-10.4) Neut % (Auto) 69.8 % % Lymph % (Auto) 21.8 % % Camp % (Auto) 5.8 % % Eos % (Auto) 1.9 % % Baso % (Auto) 0.5 % % Neut # (Auto) 5.62 10^3/uL 10^3 /uL (1.8-7.7) Lymph # (Auto) 1.8 10^3/uL 10^3/ uL (0.8-4.8) Camp # (Auto) 0.5 10^3/uL 10^3/ uL (0.2-0.9) Eos # (Auto) 0.2 10^3/uL 10^3/ uL (0.0-0.8) Baso # (Auto) 0.0 10^3/uL 10^3/ uL (0.0-0.1) Nucleated RBC % (a uto) 0 % % Nucleated RBCs # 0.0 /100WBC /100W BC Sodium 136 mmol/L mmol/L (136-145) Potassium 4.2 mmol/L mmol/L (3.5-5.1) Chloride 102 mmol/L mmol/L (98-107) Carbon Dioxide 23 mmol/L mmol/L (22-29) Anion Gap 15.2 (5-19) BUN 8 mg/dL mg/dL (6-20) Creatinine 0.5 mg/dL mg/dL (0.5-0.9) GFR Calculation 144.9 mL/min H mL /min (90-130) Glucose 91 mg/dL mg/dL (65-115) Calculated Osmolal ity 280 mOsm/kg L mOs m/kg (285-295) Calcium 8.7 mg/dL mg/dL (8.5-10.5) Total Bilirubin 0.2 mg/dL mg/dL (0.15-1.2) AST 9 U/L U/L (0-32) ALT 10 U/L U/L (0-33) Alkaline Phosphata se 92 IU/L IU/L (35-105) Total Protein 6.5 g/dL L g/dL (6.6-8.7) Albumin 4.0 g/dL g/dL (3.5-5.2) Globulin 2.5 g/dL g/dL (1.3-4.6) Urine Color Straw (Yellow) Urine Appearance Clear (CLEAR) Urine pH 8 H (5-7) Ur Specific Gravit y 1.015 (1.005-1.030) Urine Protein Neg (Negative) Urine Glucose (UA) Norm (Normal) Urine Ketones Negative (Negative) Urine Blood Neg (Negative) Urine Nitrate Negative (Negative) Urine Bilirubin Neg (Negative) Prot Sulfosalicyli c Acd Negative (Negative) Urine Urobilinogen Norm mg/dL mg/dL (Negative) Ur Leukocyte Nevaeh ase Negative (Negative) Discharge Plan Discharge Patient Disposition: Home Clinical Impression: Strain of lumbar region Qualifiers: Encounter type: initial encounter Qualified Code(s): S39.012A - Strain of muscle, fascia and tendon of lower back, initial encounter Condition: Stable Prescriptions: New cyclobenzaprine 10 mg tablet 10 mg PO TID Qty: 14 RF: 0 prednisone 10 mg tablet 60 mg PO DAILY 5 Days Qty: 30 RF: 0 ibuprofen 800 mg tablet 800 mg PO Q8H PRN (Reason: pain) Qty: 20 RF: 0 No Action trazodone 50 mg Tablet 50 mg PO BEDTIME PRN (Reason: Sleep) 30 Days Qty: 30 RF: 1 ziprasidone HCl 20 mg Capsule 20 mg PO 0700,1700 30 Days Qty: 60 RF: 1 hydroxyzine pamoate 25 mg Capsule 50 mg PO Q6H PRN (Reason: Anxiety) 30 Days Qty: 120 RF: 1 escitalopram oxalate 10 mg Tablet 10 mg PO DAILY 30 Days Qty: 30 RF: 1 lorazepam 0.5 mg tablet 1 mg PO BID PRN (Reason: anxiety) Qty: 90 RF: 0 Discharge Orders: Discharge ED (Routine); Ordered 05/15/21 Ordered By: Casandra Charles Referrals: Monica Jefferson MD [Primary Care Provider] - Patient Instructions: Low Back Strain (ED), Back Pain (ED) Activity Restrictions/Additional Instructions: As we discussed you need to return to the emergency department for worsening or severe back pain, severe abdominal pain, repetitive episodes of vomiting, significant changes in bowel habits, inability to urinate, fevers greater than 100.4, generally feeling unwell, or any other concerns you may have. Coding Level of Care Code ED [employer] for Robert Valerio
[2021-05-15 13:39] VITALS: PULSE 98; RESP 18; O2SAT 99
== END 2021-05-15 13:21 | disposition home or self-care (01) ==
PROVIDERS: Emergency Provider Physician Assistant; PCP Family Medicine
DX: S39.012A Strain of muscle, fascia and tendon of lower back, initial encounter (principal); F17.210 Nicotine dependence, cigarettes, uncomplicated; X50.0XXA Overexertion from strenuous movement or load, initial encounter
CPT/HCPCS: 80053; 81003; 85025; 99282

== ENCOUNTER 2024-03-25 22:32 | Emergency (ER) | payer MEDICAID, SELFPAY ==
[2024-03-25 23:17] VITALS: BP 126/79; PULSE 78; RESP 14; TEMP 36.8; O2SAT 99
--- NOTE | 2024-03-26 00:53 | W.ED.DENTAL ---
HPI - Dental/Oral General: Chief complaint: Dental/Oral Stated complaint: mouth pain Time Seen by Provider: 03/25/24 23:43 Source: patient Mode of arrival: ambulatory Limitations: no limitations History of Present Illness: Patient presents emergency department today for evaluation treatment of left-sided dental pain. Patient states that about 8 days ago she underwent multiple dental procedures including 3 teeth extractions. She reports having sutures in place. She states that they gave her Augmentin which she has been taking. Has been giving her some nausea and a little bit of diarrhea. Still, she states that 4 days after her procedure she began having significant increase in her pain which has continued and not improved till now. Patient is now approximately 8 days status post her dental extraction. Patient reports taking Tylenol and ibuprofen without improvement of her discomfort and is worried something is wrong due to the amount of pain she is having. She has not recorded any fevers. No difficulty swallowing or breathing. Related Data Previous Rx's Medication Instructions Recorded clindamycin HCl 300 mg capsule 300 mg PO BID 7 days #14 caps 08/29/21 ondansetron 4 mg disintegrating 4 mg PO Q8H PRN nausea and 08/29/21 tablet vomiting #14 tabs hydrocodone 5 mg-acetaminophen 325 1 tab PO Q4H PRN pain #30 tabs 03/26/24 mg tablet ondansetron 4 mg disintegrating 4 mg PO Q8H 5 days #15 tabs 03/26/24 tablet Allergies Allergy/AdvReac Type Severity Reaction Status Date / Time buspirone [From BuSpar] Allergy ADR-Cramping Verified 03/25/24 23:20 of the Muscles gabapentin [From Neurontin] Allergy ADR-Seizure Verified 03/25/24 23:20 ketorolac [From Toradol] Allergy ADR-Itching Verified 03/25/24 23:20 metoclopramide [From Reglan] AdvReac ADR-Irritab Verified 03/25/24 23:20 le prochlorperazine AdvReac ADR-Irritab Verified 03/25/24 23:20 [From Compazine] le Review of Systems General: Reports: 10 or more systems reviewed and unremarkable except in HPI and below PFSH ED PFSH: Medical History Major depressive disorder without psychotic features Information retrieved and edited from behavior assessment report on 06/05/20: Patient says she doesn't sleep well; she was on trazodone and it was not really helpful, so she stopped taking it. Reports weight loss and decreased appetite. Denied feelings of sadness; sometimes feels hopeless because she is not sure what is going on with her emotions and sometimes feels numb. She was on Prozac in the neuropsychiatric unit, and says it worked for her mood symptoms; she says she does not know why she was taken off medication. Review of the EMR shows it was discontinued in one of her emergency department visits. She endorses symptoms of: Trouble thinking, concentrating, making decisions and remembering things, loss of interest in most normal activities, restlessness, has trouble with memory. She thinks about her past; says it never stops; she can be busy doing things and will have daily flashbacks. Per symptoms checklist; ?cry easily, sweating palms, fatigue, bad dreams, mind goes blank, difficulty concentrating, trouble making decisions, trouble remembering, thoughts hard to dismiss, trouble sleeping, easily annoyed and irritable, loss of sexual desire, nervous feeling, excessive worries and fears, excessive fears of crowds, no interests in things, feeling inferior, change in personality, work difficulties, thoughts of harming self, thoughts of harming others?. MARY (generalized anxiety disorder) Information retrieved and edited from behavior assessment report on 06/05/20:Patient says she doesn't sleep well; she was on trazodone and it was not really helpful, so she stopped taking it. Reports weight loss and decreased appetite. Denied feelings of sadness; sometimes feels hopeless because she is not sure what is going on with her emotions and sometimes feels numb. She was on Prozac in the neuropsychiatric unit, and says it worked for her mood symptoms; she says she does not know why she was taken off medication. Review of the EMR shows it was discontinued in one of her emergency department visits. She endorses symptoms of: Trouble thinking, concentrating, making decisions and remembering things, loss of interest in most normal activities, restlessness, has trouble with memory. She thinks about her past; says it never stops; she can be busy doing things and will have daily flashbacks. Per symptoms checklist; ?cry easily, sweating palms, fatigue, bad dreams, mind goes blank, difficulty concentrating, trouble making decisions, trouble remembering, thoughts hard to dismiss, trouble sleeping, easily annoyed and irritable, loss of sexual desire, nervous feeling, excessive worries and fears, excessive fears of crowds, no interests in things, feeling inferior, change in personality, work difficulties, thoughts of harming self, thoughts of harming others?. Endometriosis Surgical History History of hysterectomy History of tonsillectomy and adenoidectomy History of cholecystectomy Social History Smoking and tobacco/nicotine status: current every day tobacco/nicotine user Second hand smoke exposure: Yes Alcohol intake: former Substance/Drug Use: current Substance/Drug use frequency: Special occassions/opportunity only Adopted: No Marital status: Single Number of children: 1 service: No Current gender identity: Female Physical Exam Const: COMMON NORMALS: patient oriented x3 and alert OTHER: Patient is pleasant but obviously uncomfortable. HENMT: OTHER: Patient has 2 areas in the left lower, posterior gumline with absorbable suture in place overlying what appears to be to dry sockets. Patient also has a singular area in the left upper posterior gumline with absorbable suture in place and what appears to be a dry socket as well. No signs of any active bleeding. No significant swelling, redness, or draining from the tooth extraction sites. No swelling to the floor of the mouth. Airway is patent. Eye: COMMON NORMALS: Equal, round and reactive pupils present, EOMs intact bilaterally and conjunctivae normal CONJUNCTIVA: Yes conjunctivae normal PUPIL: Yes Equal, round and reactive pupils present Neck/C-Spine: COMMON NORMALS: no JVD Lymph: LYMPHATIC: no lymphadenopathy noted Resp: COMMON NORMALS: normal respiratory effort, No retractions and No use of accessory muscles Cardio: COMMON NORMALS: no JVD and regular rate RATE: regular rate : COMMON NORMALS: Yes no CVA tenderness BLADDER/KIDNEY EXAM: Yes no CVA tenderness Back/Pelvis: COMMON NORMALS: no CVA tenderness, thoracic and lumbar spine normal to inspection and thoraco-lumbar ROM normal Extremity: COMMON NORMALS: normal to inspection, full ROM and no pedal edema Neuro: COMMON NORMALS: patient oriented x3 SENSORIUM/ORIENTATION: Yes alert Skin: COMMON NORMALS: no rashes or lesions noted and turgor normal GENERAL SKIN EXAM: no rashes or lesions noted and turgor normal Course Vital Signs: Vital signs: Vital Signs Temperature 98.3 F 03/25/24 23:17 Pulse Rate 78 03/25/24 23:17 Respiratory Rate 14 03/25/24 23:17 Blood Pressure 126/79 03/25/24 23:17 Pulse Oximetry 99 03/25/24 23:17 Oxygen Delivery Me thod Room Air 03/25/24 23:17 MDM - Dental/Oral Medical Decision Making Patient presents today with complaints of pain status post dental extraction of multiple teeth. Patient states she was doing okay for the first 4 days or so but then had developing pain not improved over the last 4 days and, not improved with use of Tylenol or ibuprofen. She is taking her Augmentin as prescribed. It is causing her some nausea and diarrhea. On examination, I am suspicious patient has developed dry sockets and all of these areas. I do not appreciate any signs of any active infection or any active bleeding however. Discussed this finding with the patient. She states that they told her not to smoke for approximately 3 to 4 days but, thinks she may have used a straw. Patient was given antinausea medication and something for pain here. Dr. Will was willing to write the patient a prescription for pain medication through the weekend as the patient reports she has an appointment with her dentist on Thursday. I encouraged her to purchase an [id number] probiotic and discussed with her how Augmentin can cause GI upset. Explained that pain medication can also make GI upset worse and would recommend she take her medication with food. She is to watch for any difficulty with her breathing, difficulty swallowing, or inability to tolerate salivary secretions. She verbalized understanding and agreement to treatment plan. Differential Diagnosis Unlikely gingival abscess, dental caries, toothache, dental abscess, fracture of tooth or aphthous ulcer No radiology studies performed this visit Discharge Plan Discharge Patient Disposition: Home Clinical Impression: Dry tooth socket, Pain, dental Condition: Stable Prescriptions: New hydrocodone-acetaminophen 5-325 mg tablet 1 tab PO Q4H PRN (Reason: pain) Qty: 30 0RF ondansetron 4 mg tablet,disintegrating 4 mg PO Q8H 5 Days Qty: 15 0RF No Action clindamycin HCl 300 mg capsule 300 mg PO BID 7 Days Qty: 14 0RF ondansetron 4 mg tablet,disintegrating 4 mg PO Q8H PRN (Reason: nausea and vomiting) Qty: 14 0RF Discharge Orders: Discharge ED (Routine); Ordered 03/26/24 Ordered By: Cornelia Taylor Discharge Diet: As Directed Discharge Activity: Increase activity as tolerated Patient Instructions: Dry Socket (ED) Activity Restrictions/Additional Instructions: Examination today does not reveal any signs of an infection however, I do believe you have developed multiple dry sockets. Unfortunately, dry sockets can be extremely painful. Keep your upcoming appointment with your dentist on Thursday but, we are providing you both antinausea medication and pain medication during this time. I have given you some information about dry sockets to look over at home but, also encourage you to take meals or snacks when you take your antibiotics and your pain medication as both of these can cause you to have upset stomach, nausea, vomiting. Also, your antibiotics can cause issues with your GI tract resulting in diarrhea. I would encourage you to get an [id number] probiotic during this time to help combat loss of good bacteria in your GI tract. If you develop sudden swelling of your jaw or neck, spike a high fever, or are not able to swallow liquids or your own saliva you need to come back to the emergency department immediately. Coding Level of Care Code ED Motor Vehicle Emissions Inspector for Robert Valerio
[2024-03-26] MEDS: HYDROcodone-acetaminophen 5-325 mg Tablet 1 TAB PO (01:35)
[2024-03-26] MEDS: ondansetron 4 MG Tablet PO (01:35)
== END 2024-03-26 01:36 | disposition home or self-care (01) ==
PROVIDERS: Emergency Provider Physician Assistant
DX: M27.3 Alveolitis of jaws (principal); Z72.0 Tobacco use
CPT/HCPCS: 99283; Q0162

== ENCOUNTER 2024-10-02 13:36 | Emergency (ER) | payer SELFPAY ==
--- NOTE | 2024-10-02 13:37 | XRR_ITS ---
PROCEDURE INFORMATION: Exam: XR Chest Exam date and time: 10/02/2024 1:50 PM Age: 34 years old Clinical indication: Pain; Shortness of breath; Chest pressure; Additional info: Cp TECHNIQUE: Imaging protocol: Radiologic exam of the chest. Views: 1 view. COMPARISON: CT abdomen pelvis w con* [id number] 06/11/2020 11:32 AM FINDINGS: Lungs: No focal consolidation. Pleural spaces: No evidence of pneumothorax. No evidence of pleural effusion. Heart/Mediastinum: Cardiomediastinal silhouette is within normal limits. Bones/joints: No evidence of acute osseous abnormality. XR/XR chest 1V portable [id number] IMPRESSION: 1. No acute cardiopulmonary abnormality.
--- NOTE | 2024-10-02 13:37 | ECG_ITS ---
[facility] Test Date: 2024-10-02 Pat Name: Leah Chua Department: Room: Gender: Female Quality Reviewer: : 1990 Requested By: Negrita Marcos Order Number: [id number] Reading MD: NANI BARRETO Measurements Intervals Newman Rate: 65 P: 42 WV: 105 QRS: 73 QRSD: 87 T: 40 QT: 356 QTc: 372 Interpretive Statements SINUS RHYTHM WITH SHORT WV INTERVAL POSSIBLE RIGHT VENTRICULAR CONDUCTION DELAY [RSR (QR) IN V1/V2] NONSPECIFIC T-WAVE ABNORMALITY Compared to ECG 06/02/2015 04:03:23 Short WV interval now present T-wave abnormality still present Electronically Signed On 10-03-2024 20:59:10 CDT by NANI BARRETO [email or web address]
[2024-10-02 13:42] VITALS: BP 122/73; PULSE 69; RESP 16; TEMP 36.7; O2SAT 99; BMI 23.8
--- NOTE | 2024-10-02 13:55 | ED_ITS ---
HPI - Chest Pain 2 General: Chief Complaint: Chest Pain Stated Complaint: cp/sob Time Seen by Provider: 10/02/24 13:37 Source: patient Mode of arrival: ambulatory Limitations: no limitations History of Present Illness: 34-year-old female states that over the last month she has been having sharp pains in her left chest states she is also had some dyspnea with these pains been worse by exertion. She denies any cough denies any fever denies minimal pain at rest no history of heart disease no history of blood clots denies any vomiting or diarrhea. Associated symptoms: Reports dyspnea; Deny abdominal pain, fever(s), nausea or vomiting Related Data Previous Rx's ?Medication ?Instructions ?Recorded clindamycin HCl 300 mg capsule 300 mg PO BID 7 days #1 4 caps 08/29/21 ondansetron 4 mg disintegrating 4 mg PO Q8H PRN nausea and 08/29/21 tablet vomiting #14 tabs hydrocodone 5 mg-acetaminophen 325 1 tab PO Q4H PRN pa in #30 tabs 03/26/24 mg tablet Allergies Allergy/AdvReac Type Severity Reaction Status Date / Time buspirone (From BuSpar) Allergy ADR-Cramping Verified 10/02/24 13:47 of the Muscles gabapentin (From Neurontin) Allergy ADR-Seizure Verified 10/02/24 13:47 ketorolac (From Toradol) Allergy ADR-Itching Verified 10/02/24 13:47 metoclopramide (From Reglan) AdvReac ADR-Irritab Verified 10/02/24 13:47 le prochlorperazine (From AdvReac ADR-Irritab Verified 10/02/24 13:47 Compazine) le Review of Systems 2 Const: Denies: fever(s), chills, body aches or change in appetite ENMT: Denies: throat pain or dental pain Card: Reports: chest pain Resp: Reports: dyspnea GI: Denies: abdominal pain, nausea, vomiting or diarrhea Musc: Denies: neck pain or back pain Skin/Breast: Denies: rash Neuro: Denies: headache(s) PFSH ED 2 PFSH: Medical History Major depressive disorder without psychotic features Information retrieved and edited from behavior assessment report on 06/05/20: Patient says she doesn't sleep well; she was on trazodone and it was not really helpful, so she stopped taking it. Reports weight loss and decreased appetite. Denied feelings of sadness; sometimes feels hopeless because she is not sure what is going on with her emotions and sometimes feels numb. She was on Prozac in the neuropsychiatric unit, and says it worked for her mood symptoms; she says she does not know why she was taken off medication. Review of the EMR shows it was discontinued in one of her emergency department visits. She endorses symptoms of: Trouble thinking, concentrating, making decisions and remembering things, loss of interest in most normal activities, restlessness, has trouble with memory. She thinks about her past; says it never stops; she can be busy doing things and will have daily flashbacks. Per symptoms checklist; ?cry easily, sweating palms, fatigue, bad dreams, mind goes blank, difficulty concentrating, trouble making decisions, trouble remembering, thoughts hard to dismiss, trouble sleeping, easily annoyed and irritable, loss of sexual desire, nervous feeling, excessive worries and fears, excessive fears of crowds, no interests in things, feeling inferior, change in personality, work difficulties, thoughts of harming self, thoughts of harming others?. MARY (generalized anxiety disorder) Information retrieved and edited from behavior assessment report on 06/05/20:Patient says she doesn't sleep well; she was on trazodone and it was not really helpful, so she stopped taking it. Reports weight loss and decreased appetite. Denied feelings of sadness; sometimes feels hopeless because she is not sure what is going on with her emotions and sometimes feels numb. She was on Prozac in the neuropsychiatric unit, and says it worked for her mood symptoms; she says she does not know why she was taken off medication. Review of the EMR shows it was discontinued in one of her emergency department visits. She endorses symptoms of: Trouble thinking, concentrating, making decisions and remembering things, loss of interest in most normal activities, restlessness, has trouble with memory. She thinks about her past; says it never stops; she can be busy doing things and will have daily flashbacks. Per symptoms checklist; ?cry easily, sweating palms, fatigue, bad dreams, mind goes blank, difficulty concentrating, trouble making decisions, trouble remembering, thoughts hard to dismiss, trouble sleeping, easily annoyed and irritable, loss of sexual desire, nervous feeling, excessive worries and fears, excessive fears of crowds, no interests in things, feeling inferior, change in personality, work difficulties, thoughts of harming self, thoughts of harming others?. Endometriosis Surgical History History of hysterectomy History of tonsillectomy and adenoidectomy History of cholecystectomy Social History Smoking and tobacco/nicotine status: current every day tobacco/nicotine user Second hand smoke exposure: Yes Alcohol intake: former Substance/Drug Use: current Substance/Drug use frequency: Special occassions/opportunity only Adopted: No Marital status: Single Number of children: 1 service: No Current gender identity: Female Physical Exam 2 Const: COMMON NORMALS: no acute distress, patient oriented x3 and healthy appearing HENMT: COMMON NORMALS: normocephalic and atraumatic HEAD & SCALP: n ormocephalic and atraumatic Eye: COMMON NORMALS: conjunctivae normal CONJUNCTIVA: Yes conjunctivae normal Neck/C-Spine: COMMON NORMALS: full ROM and supple Chest: COMMONS NORMALS: normal inspection of the chest and normal palpation of entire chest wall Resp: COMMON NORMALS: normal respiratory effort, No retractions, No use of accessory muscles and clear to auscultation bilaterally AUSCULTATION: clear to auscultation bilaterally Cardio: COMMON NORMALS: regular rate, regular rhythm and No murmurs present (Cardio) RATE: regular rate RHYTHM: regular rhythm Extremity: COMMON NORMALS: normal to inspection and full ROM Neuro: COMMON NORMALS: patient oriented x3, moves all extremities and no focal motor deficits Psych: COMMON NORMALS: mental status grossly normal, Normal thought process present and cooperative THOUGHT PROCESS: Normal thought process present Skin: COMMON NORMALS: no rashes or lesions noted and no wounds GENERAL SKIN EXAM: no rashes or lesions noted Course 2 Vital Signs: Vital signs: Vital Signs Temperature 98.0 F 10/02/24 13:42 Pulse Rate 69 10/02/24 13:42 Respiratory Rate 16 10/02/24 13:42 Blood Pressure 122/73 10/02/24 13:42 Pulse Oximetry 99 10/02/24 13:42 Oxygen Delivery Me thod Room Air 10/02/24 13:42 MDM - Chest Pain Medical Decision Making Patient presents here chest pain is atypical in nature she has been well- appearing here troponin D-dimer negative. She is stable for discharge follow-up PCP return if worsening. Medical Records I reviewed the patient's medical records. Lab Data I reviewed the patient's lab results. 10/02/24 14:05 10/02/24 14:05 Radiology Impressions Chest X-Ray 10/02/24 13:37 IMPRESSION: 1. No acute cardiopulmonary abnormality. Laboratory Results WBC 6.30 10^3/uL (3.29-11.43) 10/02/24 14:05 RBC 3.89 10^6/uL (3.85-5.65) 10/02/24 14:05 Hgb 12.60 g/dL (11.27-16.99) 10/02/24 14:05 Hct 38.0 % (36-47) 10/02/24 14:05 MCV 97.7 fl (85-98) 10/02/24 14:05 MCH 32.4 pg (27-33) 10/02/24 14:05 MCHC 33.2 g/dL (30-55) 10/02/24 14:05 RDW 12.0 % (12.1-15.1) L 10/02/24 14:05 Plt Count 179 10^3/cmm (157-399) 10/02/24 14:05 MPV 9.9 fL (7.4-10.4) 10/02/24 14:05 Neut % (Auto) 52.7 % 10/02/24 14:05 Lymph % (Auto) 39.4 % 10/02/24 14:05 [place] % (Auto) 5.2 % 10/02/24 14:05 Eos % (Auto) 1.7 % 10/02/24 14:05 Baso % (Auto) 0.8 % 10/02/24 14:05 Neut # (Auto) 3.32 10^3/uL (1.8-7.7) 10/02/24 14:05 Lymph # (Auto) 2.5 10^3/uL (0.8-4.8) 10/02/24 14:05 [place] # (Auto) 0.3 10^3/uL (0.2-0.9) 10/02/24 14:05 Eos # (Auto) 0.1 10^3/uL (0.0-0.8) 10/02/24 14:05 Baso # (Auto) 0.1 10^3/uL (0.0-0.1) 10/02/24 14:05 Nucleated RBC % (auto) 0 % 10/02/24 14:05 Nucleated RBCs # 0.0 /100WBC 10/02/24 14:05 D-Dimer <= 0.27 ug/mLFEU (0-0.59) 10/02/24 14:05 Sodium 136 mmol/L (136-145) 10/02/24 14:05 Potassium 4.1 mmol/L (3.5-5.1) 10/02/24 14:05 Chloride 103 mmol/L (98-107) 10/02/24 14:05 Carbon Dioxide 22 mmol/L (22-29) 10/02/24 14:05 Anion Gap 15.1 (5-19) 10/02/24 14:05 BUN 9 mg/dL (6-20) 10/02/24 14:05 Creatinine 0.6 mg/dL (0.5-0.9) 10/02/24 14:05 GFR Calculation 115.1 mL/min (90-130) 10/02/24 14:05 Glucose 96 mg/dL (65-115) 10/02/24 14:05 Calculated Osmolality 281 mOsm/kg (285-295) L 10/02/24 14:05 Calcium 9.3 mg/dL (8.5-10.5) 10/02/24 14:05 Total Bilirubin 0.2 mg/dL (0.15-1.2) 10/02/24 14:05 AST 10 U/L (0-32) 10/02/24 14:05 ALT 9 U/L (0-33) 10/02/24 14:05 Alkaline Phosphatase 70 U/L (35-105) 10/02/24 14:05 Troponin T Baseline < 6 ng/L (0-10) 10/02/24 14:05 NT-Pro-B Natriuret Pep 66 pg/mL (0-125) 10/02/24 14:05 Total Protein 6.5 g/dL (6.6-8.7) L 10/02/24 14:05 Albumin 4.1 g/dL (3.5-5.2) 10/02/24 14:05 Globulin 2.4 g/dL (1.3-4.6) 10/02/24 14:05 Lipase 69 U/L (13-60) H 10/02/24 14:05 HCG, Qual Negative (Negative) 10/02/24 14:05 All radiology interpretation(s) finalized by discharge EKG Data EKG 1: I personally reviewed and interpreted this EKG as follows: EKG interpretation date: 10/02/24 EKG interpretation time: 13:41 Interpretation: nsr hr [address] elevation qrs 87 qtc 368 Discharge Plan Discharge Patient Disposition: Home Clinical Impression: Atypical chest pain Condition: Stable Prescriptions: No Action clindamycin HCl 300 mg capsule 300 mg PO BID 7 Days Qty: 14 0RF ondansetron 4 mg tablet,disintegrating 4 mg PO Q8H PRN (Reason: nausea and vomiting) Qty: 14 0RF hydrocodone-acetaminophen 5-325 mg tablet 1 tab PO Q4H PRN (Reason: pain) Qty: 30 0RF Discharge Orders: Discharge ED (Routine); Ordered 10/02/24 Ordered By: Negrita Marcos Discharge Diet: Advance as tolerated Discharge Activity: Resume usual activity Patient Instructions: Chest Pain (ED) Print Language: Czech Coding Level of Care Code ED Manager Of Merchandising for Robert Valerio
[2024-10-02 14:11] LABS: Basophils # 0.1 10^3/uL (0.0-0.1); Basophils % 0.8 %; Eosinophils # 0.1 10^3/uL (0.0-0.8); Eosinophils % 1.7 %; Lymphocytes # 2.5 10^3/uL (0.8-4.8); Lymphocytes % 39.4 %; Mean Corpuscular HGB Conc 33.2 g/dL (30-55); Mean Corpuscular Hemoglobin 32.4 pg (27-33); Mean Corpuscular Volume 97.7 fl (85-98); Mean Platelet Volume 9.9 fL (7.4-10.4); Monocytes # 0.3 10^3/uL (0.2-0.9); Monocytes % 5.2 %; Neutrophils # 3.32 10^3/uL (1.8-7.7); Neutrophils % 52.7 %; Nucleated Red Blood Cells % 0 %; Platelet Count 179 10^3/cmm (157-399); Red Blood Count 3.89 10^6/uL (3.85-5.65)
[2024-10-02 14:23] LABS: HCG, Serum Qual Negative (Negative)
[2024-10-02 14:27] LABS: D Dimer <= 0.27 ug/mLFEU (0-0.59)
[2024-10-02 14:29] LABS: Troponin(5th) Baseline < 6 ng/L (0-10)
[2024-10-02 14:43] LABS: Alanine Aminotransferase 9 U/L (0-33); Albumin Level 4.1 g/dL (3.5-5.2); Alkaline Phosphatase 70 U/L (35-105); Anion Gap 15.1 (5-19); Aspartate Amino Transferase 10 U/L (0-32); Blood Urea Nitrogen 9 mg/dL (6-20); Calcium 9.3 mg/dL (8.5-10.5); Carbon Dioxide 22 mmol/L (22-29); Chloride 103 mmol/L (98-107); Creatinine Clr Calc Pharmacy 112.9439; Globulin 2.4 g/dL (1.3-4.6); Glomerular Filtration Rate 115.1 mL/min (90-130); Glucose 96 mg/dL (65-115); Lipase 69 U/L (13-60); NT Pro B Type Natriuretic Pept 66 pg/mL (0-125); Osmolality Calculated 281 mOsm/kg (285-295); Potassium 4.1 mmol/L (3.5-5.1); Sodium 136 mmol/L (136-145); Total Bilirubin 0.2 mg/dL (0.15-1.2); Total Protein 6.5 g/dL (6.6-8.7)
[2024-10-02 15:13] VITALS: BP 93/64; PULSE 72; O2SAT 96
== END 2024-10-02 15:13 | disposition home or self-care (01) ==
PROVIDERS: Emergency Provider Emergency Medicine
DX: R07.89 Other chest pain (principal); Z72.0 Tobacco use
CPT/HCPCS: 71045; 80053; 83690; 83880; 84484; 84703; 85025; 85378; 93005; 99285